=== PATIENT | male | born 1985 | race Caucasian/White ===

== ENCOUNTER 2021-06-06 09:00 | Emergency (ER) | payer OTHER, SELFPAY ==
[2021-06-06 09:17] VITALS: BP 144/92; PULSE 78; RESP 18; TEMP 36.8; O2SAT 99; BMI 36.9
--- NOTE | 2021-06-06 09:19 | HMH.EDUTC ---
[facility] [place] Clinical Impression: Bronchitis Sinusitis Qualifiers: Sinusitis location: unspecified location Chronicity: acute Recurrence: non-recurrent Qualified Code(s): J01.90 - Acute sinusitis, unspecified Disposition: Home, Self-Care Condition on Discharge: Good Instructions: Sinusitis, DI for Sinusitis Additional Instructions: Drink plenty of fluids. Take tylenol or ibuprofen for pain or fever. Take the medications as directed. Follow up with your regular doctor. GO TO THE ER FOR ANY WORSENING SYMPTOMS Quarantine until you know the results of your covid-19 test. If it is positive, the health department should call you and give you further instructions about your length of Quarantine and other things. Notify your school or workplace of your results and follow their instructions regarding return to work/school. Prescriptions: Brompheniramine/Pseudoephed/Dm [Bromfed Dm Cough Syrup] 5 ml PO Q6HP PRN #240 ml PRN Reason: Cough Transmission Status: Received by [facility] #[id number] Amoxicillin/Potassium Clav [Augmentin 875-125 Tablet] 1 tab PO Q12H 10 Days #20 tab Transmission Status: Received by [facility] #[id number] methylPREDNISolone [Medrol] 4 mg PO DIRECTED 6 Days #21 packet Transmission Status: Received by [facility] #[id number] guaiFENesin [Mucinex 600mg tablet] 1 - 2 tab PO BIDP PRN #30 tab PRN Reason: Congestion Transmission Status: Received by [facility] #[id number] Referrals: Jerardo Conrad [Primary Care Provider] - Time of Disposition: 09:34 Medical Decision Making - Medical Records Medical records reviewed: No: I reviewed the patient's medical records. - Karel Inquiry Pt receiving controlled substance: No Vital Signs: 06/06/21 09:17 06/06/21 09:41 Temperature 98.2 F 98.2 F Temperature Source Oral Pulse Rate 78 Pulse Rate [Brachial] 78 Respiratory Rate 18 16 Blood Pressure 144/92 H Blood Pressure [Right Arm] 144/92 H Blood Pressure Mean [Right Arm] 109 Blood Pressure Source [Right Arm] Automatic Cuff 02 Sat by Pulse Oximetry 99 Oxygen Delivery Method Room Air - Lab Data Lab results reviewed: Yes: I reviewed the patient's lab results. Lab Results 06/06/21 09:22: Strep Scn Rapid Clinic Negative Orders (Tests/Meds): ORDERS Category Date Time Status Strep Screen Confirmation Routine Micro 06/06/21 09:22 [place]ceived [facility] [place] - General Stated complaint: bilateral ear pain, sore throat, cough, congestion Time Seen by Provider: 06/06/21 09:19 - History of Present Illness Provider Complaint: He states that for the last 3 days he has had worsening sinus congestion and sore throat. He has had a dry cough and mild chest congestion too. He has been vaccinated against covid-19. - Related Data Previous Rx's Medication Instructions Recorded Amoxicillin/Potassium Clav 1 tab PO Q12H 10 Days #20 tab 06/06/21 [Augmentin 875-125 Tablet] Brompheniramine/Pseudoephed/Dm 5 ml PO Q6HP PRN #240 ml 06/06/21 [Bromfed Dm Cough Syrup] guaiFENesin [Mucinex 600mg tablet] 1 - 2 tab PO BIDP PRN #30 tab 06/06/21 methylPREDNISolone [Medrol] 4 mg PO DIRECTED 6 Days #21 06/06/21 packet Allergies Allergy/AdvReac Type Severity Reaction Status Date / Time No Known Allergies Allergy Verified 02/28/21 09:40 [facility] History - Hepatitis A Screen Attestation statement:: This patient has been screened for Hepatitis A risk factors. I have reviewed the patient's past medical history: Yes ROS Obtained: Yes All systems reviewed & no additional complaints - Constitutional Constitutional: Denies body ache, Denies chills, Denies fever(s), Reports poor appetite, Reports malaise - Eyes Eyes: Denies eye discharge - ENT Ears, Nose, Mouth, and Throat: Reports as per HPI - Cardiovascular Cardiovascular: Denies chest pain - Respiratory Respiratory: Reports chest congestion, Reports cough, Denies dyspnea
[2021-06-06 09:41] VITALS: BP 144/92; PULSE 78; RESP 16; TEMP 36.8
[2021-06-06 09:43] LABS: UTC Strep Screen (Rapid) Negative (Negative)
[2021-06-06 13:11] LABS: Adenovirus,PCR Not Detected (NotDetected); Bordetella Pertussis Not Detected (NotDetected); Chlamydophila Pneumoniae, PCR Not Detected (NotDetected); Coronavirus 19, PCR Not Detected (NotDetected); Coronavirus 229E Not Detected (NotDetected); Coronavirus NL63 Not Detected (NotDetected); Coronavirus OC43 Not Detected (NotDetected); Coronovirus HKU1,PCR Not Detected (NotDetected); Human Metapneumovirus Not Detected (NotDetected); Influenza A, PCR Not Detected (NotDetected); Influenza AH1, 2009 Not Detected (NotDetected); Influenza AH1, PCR Not Detected (NotDetected); Influenza AH3,PCR Not Detected (NotDetected); Influenza B, PCR Not Detected (NotDetected); Mycoplasma Pneumoniae, PCR Not Detected (NotDetected); Parainfluenza 1, PCR Not Detected (NotDetected); Parainfluenza 2, PCR Not Detected (NotDetected); Parainfluenza 3, PCR Not Detected (NotDetected); Parainfluenza 4, PCR Not Detected (NotDetected); Respiratory Syncytial Virus Not Detected (NotDetected); Rhinovirus/Enterovirus Not Detected (NotDetected)
== END 2021-06-06 09:41 | disposition home or self-care (01) ==
LOC: ER 09:04 → UTC 09:05
PROVIDERS: Emergency Provider Nurse Practitioner Family; PCP Internal Medicine
DX: J20.9 Acute bronchitis, unspecified (principal); J01.90 Acute sinusitis, unspecified; Z20.822 Contact with and (suspected) exposure to COVID-19
CPT/HCPCS: 87581; 87632; 87798; 87880; 99202; C9803; G0463; U0003; U0005

== ENCOUNTER → 2022-02-22 08:00 | Outpatient (CLI) | payer SELFPAY | PROVIDERS: Visit Provider Nurse Practitioner Family | DX: Z02.4 Encounter for examination for driving license (principal) ==

== ENCOUNTER → 2023-03-02 08:50 | Outpatient (CLI) | payer SELFPAY | PROVIDERS: PCP Internal Medicine; Visit Provider Nurse Practitioner Family | DX: Z02.4 Encounter for examination for driving license (principal) ==

== ENCOUNTER 2024-09-18 02:14 | Emergency (ER) | payer BC, SELFPAY ==
[2024-09-18 02:15] VITALS: BP 151/75; PULSE 84; RESP 18; TEMP 36.6; O2SAT 98; BMI 33.4
--- NOTE | 2024-09-18 02:20 | CT_ITS ---
PROCEDURE INFORMATION: Exam: CTA Abdomen and Pelvis With Contrast Exam date and time: 09/18/2024 2:44 AM Age: 38 years old Clinical indication: Abdominal pain; Acute; Additional info: Severe midline abd pain radiating to back TECHNIQUE: Imaging protocol: Computed tomographic angiography of the abdomen and pelvis with contrast. Exam focused on the arteries. 3D rendering (Not supervised by radiologist): MIP and/or 3D reconstructed images were created by the technologist. Radiation optimization: All CT scans at this facility use at least one of these dose optimization techniques: automated exposure control; mA and/or kV adjustment per patient size (includes targeted exams where dose is matched to clinical indication); or iterative reconstruction. Contrast material: ISOUVE; Contrast volume: 80 ml; Contrast route: INTRAVENOUS (IV); COMPARISON: No relevant prior studies available. FINDINGS: Diaphragm: Small hiatal hernia. Aorta: The aorta is unremarkable. Celiac trunk and mesenteric arteries: No occlusion or significant stenosis. Renal arteries: No occlusion or significant stenosis. Right iliac arteries: No occlusion or significant stenosis. Left iliac arteries: No occlusion or significant stenosis. Liver: No mass. Gallbladder and biliary ducts: Unremarkable. No calcified stones. No ductal dilation. Pancreas: Unremarkable. No mass. No ductal dilation. Spleen: Unremarkable. No splenomegaly. Adrenal glands: Unremarkable. No mass. Kidneys and ureters: Unremarkable. No solid mass. No hydronephrosis. Stomach and bowel: Prior gastric bypass surgery. Appendix: No evidence of appendicitis. Intraperitoneal space: Unremarkable. No free air. No significant fluid collection. Lymph nodes: Unremarkable. No enlarged lymph nodes. Urinary bladder: Unremarkable. No mass. Reproductive: Unremarkable as visualized. Bones/joints: No acute fracture. Soft tissues: Unremarkable. IMPRESSION: 1. Normal aorta and branches. 2. Gastric bypass surgery with small hiatal hernia, no ileus or obstruction.
--- NOTE | 2024-09-18 02:22 | ECG_ITS ---
APPROVED REPORT Exam: Resting ECG HR:78 bpm ECG Measurements Heart Rate 78 AXES IL 148 P 26 QRSd 101 QRS 40 QT 376 T 15 QTc 409 Conclusion SINUS RHYTHM NONSPECIFIC T-WAVE ABNORMALITY BORDERLINE ECG UNCONFIRMED REPORT Electronically signed by : RYAN SMITH, 09/18/2024 06:53:47
[2024-09-18 02:27] LABS: Microscopic, Urine URINE MICROSCOPIC (MICROSCOPIC)
[2024-09-18] MEDS: ONDANSETRON 4MG/2ML VIAL 4 MG IV (02:28)
[2024-09-18] MEDS: KETOROLAC 30MG/ML VIAL 30 MG IV (02:28)
[2024-09-18] MEDS: MORPHINE 4MG/ML SYRINGE 4 MG IV (02:29)
[2024-09-18] MEDS: ACETAMINOPHEN 500MG TAB 1000 MG PO (02:29)
[2024-09-18 02:30] LABS: Appearance,Urine CLEAR (Clear); Bilirubin,Urine Negative (Negative); Blood, Urine TRACE-I (Negative); Color,Urine YELLOW (Yellow); Glucose,Urine (UA) Negative (Negative); Ketones,Urine Negative (Negative); Leukocyte Esterase,Urine Negative (Negative); Nitrate,Urine Negative (Negative); Protein,Urine Negative (Negative); Specific Gravity, Urine 1.025 (1.005-1.030); Urobilinogen,Urine 0.2 EU/dl (0.2)
[2024-09-18 02:33] LABS: Coronavirus 19, PCR Not Detected (NotDetected); Influenza A, PCR Not Detected (NotDetected); Influenza B, PCR Not Detected (NotDetected)
--- NOTE | 2024-09-18 02:35 | ED_ITS ---
Discharge Plan Disposition Patient Disposition: Home, Self-Care Prescriptions Prescriptions: No Action amlodipine 10 mg tablet 10 mg PO DAILY valsartan 320 mg tablet 320 mg PO DAILY Referrals Follow up/Referrals: Provider,Referral, MD [Primary Care Provider] - See instructions Activity Restrictions/Add. Instructions Additional Instructions/Restrictions: Recommend following up with your PCP for further assessment and consideration of scope. Recommend starting antacid medication. If your symptoms worsen or do not significantly improve, recommend reevaluation. Clinical Impressions Clinical Impression: Acute epigastric pain Stand Alone Forms Stand Alone Forms: Work/School Release Print Language Print Language: Urdu Discharge ED Provider: Caleb Fitzpatrick General Adult HPI General Chief complaint: PAIN Stated complaint: Abdominal Pain Time Seen by Provider: 09/18/24 02:15 History of Present Illness HPI narrative: 38-year-old male with history of gastric bypass presents for severe acute onset epigastric abdominal pain radiating to the back. He reports it was 10 or 10 and woke him from sleep. He tried to take a shower and relax at home but it did not improve. Reports he been having some diarrhea for the last few days. He denies any fever at home. Reports some alcohol use and vaping, denies drug use. Related Data Home Medications ?Medication ?Instructions ?Recorded ?Confirmed amlodipine 10 mg tablet 10 mg PO DAILY 09/18/24 09/18/24 valsartan 320 mg tablet 320 mg PO DAILY 09/18/24 09/18/24 Allergies Allergy/AdvReac Type Severity Reaction Status Date / Time No Known Allergies Allergy Verified 02/28/21 09:40 [facility] Disclaimer: The information contained in this section may have been updated after the patient was seen, as this information can be updated by other users. Social History Smoking Status: Current every day smoker alcohol intake: never current occupational status: employed Travel in the last 8 weeks: None ROS Obtained: Yes All systems reviewed & no additional complaints except as documented Physical Exam General General appearance: alert Comment: Uncomfortable appearing Head Head exam: atraumatic and normocephalic Eye Eye exam: Present normal appearance, PERRL and EOMI ENT ENT exam: Present normal oropharynx and normal external ear exam Neck Neck exam: Present normal inspection and full ROM Chest Chest inspection: Present normal inspection and symmetric chest wall rise; Absent tenderness Respiratory Respiratory exam: Present normal lung sounds bilaterally; Absent respiratory distress Cardiovascular Cardiovascular exam: Present regular rate and normal rhythm Abdominal Exam Abdominal exam: Present soft and tenderness (Epigastric); Absent distention or guarding Extremities Exam Extremities exam: Present normal inspection; Absent edema or joint swelling Back Exam Back exam: Present normal inspection; Absent tenderness Neurological Exam Neurological exam: Present alert and oriented X3; Absent motor sensory deficit Psychiatric Psychiatric exam: Present normal affect and normal mood Skin Skin exam: Present warm, dry and normal color Lymphatic Lymphatic Findings: no adenopathy Medical Decision Making Medical Records Medical records reviewed: Yes I reviewed the patient's medical records. Screening: Per USPSTF and CDC recommendations, given the prevalence of disease in our region, it is our hospital?s policy to screen for HIV and viral Hepatitis for all patients aged 18 and over and those with ongoing risk factors. Karel Inquiry Pt receiving controlled substance: No Karel was queried for this patient: No Vital Signs: 09/18/24 02:15 09/18/24 02:51 09/18/24 03:24 Temperature 97.9 F Temperature Source Oral Pulse Rate 76 70 Pulse Rate [Right Brachial] 84 Respiratory Rate 18 18 16 Blood Pressure 151/89 H 152/92 H Blood Pressure [Right Arm] 151/75 H Blood Pressure Mean [Right Arm] 100 Blood Pressure Source Automatic Cuff Automatic Cuff Blood Pressure Source [Right Arm] Automatic Cuff Blood Pressure Position Sitting Sitting 02 Sat by Pulse Oximetry 98 98 96 Oxygen Delivery Method Room Air Room Air Room Air 09/18/24 04:00 Temperature 97.9 F Temperature Source Oral Pulse Rate 67 Pulse Rate [Right Brachial] Respiratory Rate 15 Blood Pressure 136/83 Blood Pressure [Right Arm] Blood Pressure Mean [Right Arm] Blood Pressure Source Blood Pressure Source [Right Arm] Blood Pressure Position 02 Sat by Pulse Oximetry Oxygen Delivery Method Room Air Lab Data Lab results reviewed: Yes I reviewed the patient's lab results. Lab Results 09/18/24 02:17: Urine Color Yellow, Urine Appearance Clear, Urine pH 6.0, Ur Specific [place] 1.025, Urine Protein Negative, Urine Glucose (UA) Negative, Urine Ketones Negative, Urine Blood Trace-i, Urine Nitrate Negative, Urine Bilirubin Negative, Urine Urobilinogen 0.2, Ur Leukocyte Esterase Negative, Urine RBC Occasional, Urine WBC Occasional, Ur Squamous Epith Cells 3-5, Urine Bacteria Trace, Urine Mucus Trace 09/18/24 02:27: WBC 9.2, RBC 5.31, Hgb 16.4, Hct 47.0, MCV 88.5, MCH 30.9, MCHC 34.9, RDW 12.4, Plt Count 194, MPV 10.3, Neut % (Auto) 75.6, Lymph % (Auto) 15.2, [place] % (Auto) 6.8, Eos % (Auto) 1.6, Baso % (Auto) 0.5, Neut # (Auto) 7.0, Lymph # (Auto) 1.4, [facility] # (Auto) 0.6, Eos # (Auto) 0.2, Baso # (Auto) 0.1, Sodium 141, Potassium 3.8, Chloride 104, Carbon Dioxide 29, Anion Gap 11.8, BUN 13, Creatinine 0.80, Estimated Creat Clear 187, Estimated GFR 108, Est GFR ( Amer) 131, Glucose 87, Calcium 9.2, Magnesium 2.1, Total Bilirubin 1.5 H, AST 98 H, ALT 42, Alkaline Phosphatase 80, Troponin I < 0.01, Total Protein 7.7, Albumin 4.9, Globulin 2.8, Albumin/Globulin Ratio 1.8, Lipase 164 09/18/24 02:30: SARS-CoV-2 (PCR) Not detected, Influenza A Untype (PCR) Not detected, Influenza Type B (PCR) Not detected 09/18/24 02:27 09/18/24 02:27 Orders (Tests/Meds): ED MEDICATIONS Discontinued Medications Generic Name Dose Route Start Last Admin Trade Name Freq PRN Reason Stop Dose Admin Acetaminophen 1,000 mg 09/18/24 02:20 09/18/24 02:29 Acetaminophen 500mg Tab PO 09/18/24 02:21 1,000 mg ONCE ONE Administration Belladonna Alkaloids 60 ml 09/18/24 03:21 09/18/24 03:24 Belladonna Alkaloids 60 Ml Ml PO 09/18/24 03:22 60 ml ONCE ONE Administration Iopamidol 80 ml 09/18/24 02:52 09/18/24 02:53 Iopamidol-370 (76%);100ml Bottle IV 09/18/24 02:53 80 ml ONCE ONE Administration Ketorolac Tromethamine 30 mg 09/18/24 02:20 09/18/24 02:28 Ketorolac 30mg/Ml Vial IV 09/18/24 02:21 30 mg ONCE ONE Administration Morphine Sulfate 4 mg 09/18/24 02:20 09/18/24 02:29 Morphine 4mg/Ml Syringe IV 09/18/24 02:21 4 mg ONCE ONE Administration Ondansetron HCl 4 mg 09/18/24 02:20 09/18/24 02:28 Ondansetron 4mg/2ml Vial IV 09/18/24 02:21 4 mg ONCE ONE Administration Sodium Chloride 50 ml 09/18/24 02:52 09/18/24 02:53 0.9 % Sodium Chloride 50 Ml Vial IV 09/18/24 02:53 50 ml ONCE ONE Administration Sodium Chloride 10 ml 09/18/24 02:52 09/18/24 02:53 Sodium Chloride 0.9% 10ml Syr (Rad Only) IV 09/18/24 02:53 10 ml ONCE ONE Administration ORDERS Category Date Time Status CT angio abdomen pelvis Stat Cat Scan 09/18/24 02:20 Completed POCUS Point of Care (ER Only) Stat Exams 09/18/24 03:04 Ordered CBC w/Auto Diff [Complete Blood Count Auto Diff] Stat Lab 09/18/24 02:27 Completed CMP [Comprehensive Metabolic Panel] Stat Lab 09/18/24 02:27 Completed HIV Combo Routine Lab 09/18/24 02:27 Received Hepatitis C Ab Qual. W/ RFX Routine Lab 09/18/24 02:27 Received Lipase Stat Lab 09/18/24 02:27 Completed Magnesium Stat Lab 09/18/24 02:27 Completed Rapid PCR Covid and Flu A/B Stat Lab 09/18/24 02:30 Completed Troponin I Q3H Lab 09/18/24 02:27 Completed UA [Urinalysis and Microscopic] Stat Lab 09/18/24 02:17 Completed ECG Data Tracing #1: I reviewed this ECG and interpreted as documented below: ECG initial impression date: 09/18/24 ECG initial impression time: 02:23 ECG normal with no acute: arrhythmias, ischemia, conduction abnormalities, chamber hypertrophy HEART Score History (anamnesis): Slightly suspicious ECG: Normal Age: <45 years Risk factors: 1-2 risk factors Troponin: </= normal limit HEART Score: 1 Medical Decision Narrative: 38-year-old male with history of hypertension and gastric bypass presents with acute epigastric abdominal pain radiating to the back. History was obtained via interactive discussion with patient, chart review. On arrival, patient is [afebrile, hemodynamically stable, satting appropriately, alert, oriented x4, GCS 15], moving all extremities spontaneously. Full physical exam performed and significant for epigastric abdominal tenderness, no tenderness to the right upper quadrant Differential includes but is not limited to pancreatitis, acute aortic pathology, cholecystitis, gastritis, gastroenteritis, bowel obstruction. Patient was given Tylenol Toradol morphine Zofran for symptomatic management and correction of underlying abnormalities. Workup initiated including emergent CTA of the abdomen and pelvis, CBC CMP lipase troponin EKG UA. I attempted bedside ultrasound of the right upper quadrant but it was not of sufficient image quality to be diagnostic. On re-evaluation, patient reports some improvement in pain but it is still there. Significantly improved/resolved after administration of GI cocktail. Laboratory workup independently interpreted by me and significant for no significant leukocytosis, no significant electrolyte derangement, minimally elevated bili at 1.5, millimeter elevated AST at 98, negative initial troponin, negative lipase, negative urine.. Imaging independently interpreted by me and significant for no evidence of acute aortic pathology, bowel obstruction, gallstones or pericholecystic fluid, pancreatitis etc. Patient does have a small hiatal hernia. See radiology read for full review of final results. Waiting for formal right upper quadrant ultrasound in the morning was considered, but deemed unnecessary due to patient has no right upper quadrant tenderness and had significant proved after GI cocktail. Given patient history, exam and workup, patient's presentation most likely represents gastritis/GERD. Interact discussion was had with patient regarding his presentation. He was discharged in stable condition with instructions to begin/expand his antacid medications and follow-up with his PCP/GI for consideration of scope. Return precautions given. Procedures Risk/Benefits of Procedure(s) Were Explained: Yes Critical Care Critical Care Time Critical Care Time: No
[2024-09-18 02:37] LABS: Basophils # 0.1 K/mm3 (0-0.2); Basophils % 0.5 % (0.1-2.0); Eosinophils # 0.2 K/mm3 (0.0-0.4); Eosinophils % 1.6 % (0.1-12.0); Hemoglobin 16.4 g/dL (14.1-18.0); Lymphocytes # 1.4 K/mm3 (0.7-4.5); Lymphocytes % 15.2 % (10-50); Mean Corpuscular HGB Conc 34.9 g/dL (31.8-35.4); Mean Corpuscular Hemoglobin 30.9 pg (27.0-31.2); Mean Corpuscular Volume 88.5 fl (80-94); Mean Platelet Volume 10.3 fl (7.4-10.4); Monocytes # 0.6 K/mm3 (0.1-1.0); Monocytes % 6.8 % (1.7-9.3); Neutrophils % 75.6 % (37.0-80.0); Platelet Count 194 K/mm3 (142-424); Red Blood Count 5.31 M/mm3 (4.60-6.20); Red Cell Distribution Width 12.4 % (11.5-17.5); White Blood Count 9.2 K/mm3 (4.8-10.8)
--- NOTE | 2024-09-18 02:39 | PC.NURSE ---
PATIENT TO CT
[2024-09-18 02:41] LABS: Bacteria,Urine Trace /lpf; Mucus,Urine Trace /lpf; RBC,Urine Occasional #/hpf (0-3); WBC,Urine Occasional #/hpf (0-3)
[2024-09-18 02:47] LABS: Alanine Aminotransferase 42 U/L (12-78); Albumin Level 4.9 g/dl (3.5-5.0); Albumin/Globulin Ratio 1.8 (1.1-1.8); Alkaline Phosphatase 80 U/L (38-126); Anion Gap 11.8 mEq/L (5-15); Aspartate Amino Transferase 98 U/L (17-59); Bilirubin,Total 1.5 mg/dl (0.2-1.3); Blood Urea Nitrogen 13 mg/dl (9-20); Calcium 9.2 mg/dl (8.4-10.2); Carbon Dioxide 29 mmol/L (22.0-30.0); Chloride 104 mmol/L (98-107); Creatinine Clearance Estimated 187 mL/min (50-200); Estimated Glomerular Filt Rate 108 ml/min (>60); GFR (African American) 131 ML/MIN (>60); Globulin 2.8 g/dL (1.3-3.2); Glucose 87 mg/dl (74-100); Lipase 164 U/L (23-300); Magnesium 2.1 mg/dl (1.6-2.3); Potassium 3.8 mmoL/L (3.5-5.1); Sodium 141 mmol/L (136-145); Total Protein,Serum 7.7 g/dl (6.3-8.2)
[2024-09-18 02:51] VITALS: BP 151/89; PULSE 76; RESP 18; O2SAT 98
--- NOTE | 2024-09-18 02:51 | PC.NURSE ---
RETURN FROM CT. STATES FEELING MUCH
[2024-09-18] MEDS: 0.9 % SODIUM CHLORIDE 50 ML VIAL IV (02:53)
[2024-09-18] MEDS: IOPAMIDOL-370 (76%);100ML BOTTLE 80 ML IV (02:53)
[2024-09-18] MEDS: SODIUM CHLORIDE 0.9% 10ML SYR (RAD ONLY) 10 ML IV (02:53)
[2024-09-18 03:01] LABS: Troponin I < 0.01 ng/ml (0.00-0.034)
[2024-09-18 03:24] VITALS: BP 152/92; PULSE 70; RESP 16; O2SAT 96
[2024-09-18] MEDS: BELLADONNA ALKALOIDS 60 ML ML PO (03:24)
[2024-09-18 04:00] VITALS: BP 136/83; PULSE 67; RESP 15; TEMP 36.6; O2SAT 98
[2024-09-18 09:03] LABS: HIV Combo NEGATIVE (Negative)
[2024-09-18 09:12] LABS: Hepatitis C Ab Qual. W/ RFX NEGATIVE (Negative)
== END 2024-09-18 04:00 | disposition home or self-care (01) ==
PROVIDERS: Emergency Provider Emergency Medicine
DX: R10.13 Epigastric pain (principal); R10.9 Unspecified abdominal pain; R19.7 Diarrhea, unspecified
CPT/HCPCS: 74174; 80053; 81001; 83690; 83735; 84484; 85025; 86803; 87389; 87636; 93005; 96374; 96375; 99285; J1885; J2270; J2405; Q9967

== ENCOUNTER 2024-10-02 19:48 | Inpatient (IN) | payer BC, SELFPAY ==
[2024-10-02] VITALS (10 sets, daily range): BP systolic 125–175; BP diastolic 74–110; PULSE 57–97; RESP 17–22; TEMP 36.4–36.9; O2SAT 94–100; BMI 34.2; BMI 33.3
[2024-10-02] MEDS: HYDROMORPHONE 2MG/ML SYRINGE 1 MG IV ×3 (19:54→21:42)
[2024-10-02] MEDS: ONDANSETRON 4MG/2ML VIAL 4 MG IV (19:55)
--- NOTE | 2024-10-02 20:01 | ECG_ITS ---
APPROVED REPORT Exam: Resting ECG HR:95 bpm ECG Measurements Heart Rate 95 AXES SD 160 P 42 QRSd 101 QRS 45 QT 370 T 28 QTc 423 Conclusion SINUS RHYTHM NONSPECIFIC T-WAVE ABNORMALITY BORDERLINE ECG UNCONFIRMED REPORT Electronically signed by : RYAN SMITH, 10/03/2024 23:56:27
[2024-10-02] MEDS: PROMETHAZINE HCL 25MG/ML 1ML VIAL 25 MG IV (20:07)
[2024-10-02] MEDS: SODIUM CHLORIDE 0.9% 25ML BAG 25 ML IV (20:08)
[2024-10-02 20:19] LABS: Albumin Level 4.9 g/dl (3.5-5.0); Chloride 100 mmol/L (98-107)
[2024-10-02 20:20] LABS: Potassium 3.3 mmoL/L (3.5-5.1); Sodium 139 mmol/L (136-145)
[2024-10-02 20:22] LABS: Blood Urea Nitrogen 6 mg/dl (9-20); Creatinine Clearance Estimated 173 mL/min (50-200); Estimated Glomerular Filt Rate 94 ml/min (>60); GFR (African American) 114 ML/MIN (>60)
[2024-10-02 20:23] LABS: Alanine Aminotransferase 220 U/L (12-78); Albumin/Globulin Ratio 1.5 (1.1-1.8); Alkaline Phosphatase 95 U/L (38-126); Anion Gap 13.3 mEq/L (5-15); Aspartate Amino Transferase 255 U/L (17-59); Calcium 9.2 mg/dl (8.4-10.2); Carbon Dioxide 29 mmol/L (22.0-30.0); Globulin 3.3 g/dL (1.3-3.2); Glucose 109 mg/dl (74-100); Total Protein,Serum 8.2 g/dl (6.3-8.2)
[2024-10-02 20:24] LABS: Basophils # 0.1 K/mm3 (0-0.2); Basophils % 0.8 % (0.1-2.0); Eosinophils # 0.1 K/mm3 (0.0-0.4); Eosinophils % 1.7 % (0.1-12.0); Hemoglobin 16.4 g/dL (14.1-18.0); Lymphocytes # 1.1 K/mm3 (0.7-4.5); Lymphocytes % 15.3 % (10-50); Mean Corpuscular HGB Conc 34.9 g/dL (31.8-35.4); Mean Corpuscular Hemoglobin 30.5 pg (27.0-31.2); Mean Corpuscular Volume 87.5 fl (80-94); Mean Platelet Volume 10.2 fl (7.4-10.4); Monocytes # 0.6 K/mm3 (0.1-1.0); Monocytes % 8.1 % (1.7-9.3); Neutrophils # 5.3 K/mm3 (1.8-7.8); Neutrophils % 73.7 % (37.0-80.0); Platelet Count 216 K/mm3 (142-424); Red Blood Count 5.37 M/mm3 (4.60-6.20); Red Cell Distribution Width 12.4 % (11.5-17.5); White Blood Count 7.1 K/mm3 (4.8-10.8)
--- NOTE | 2024-10-02 20:25 | ED_ITS ---
Discharge Plan Disposition Patient Disposition: Admitted Chief Complaint: Abdominal Pain Clinical Impressions Clinical Impression: Choledocholithiasis, Acute cholecystitis Discharge ED Provider: Miguel Harris General Adult HPI General Chief complaint: Abdominal Pain Stated complaint: Chest pain Time Seen by Provider: 10/02/24 19:49 Mode of Arrival: Ambulatory Source of Information: Patient Limitations: No Limitations Description of Symptoms (Recalled from ER Triage Doc. by RN): pt reports severe right sided abdominal pain that radiates to his back and between his shoulder blades History of Present Illness HPI narrative: Please note that above description of symptoms, in this electronic medical record under categorization of recalled from ER triage doctor by RN are reflective of an initial nursing assessment, however, is not reflective of my full history and physical exam that was personally taken and clarified. Consequentially, this preceding description of symptoms, which may include the patient's categorized chief complaint in the EMR, do not reflect my personal clinical impression, and the ultimate description of history of present illness and patient stated complaints should be deferred to this section of the note. Unless stated otherwise or congruent with this section of the note, additional signs, symptoms, or incongruence should be interpreted as inaccurate with my clinical impression. Related Data Home Medications ?Medication ?Instructions ?Recorded ?Confirmed amlodipine 10 mg tablet 10 mg PO DAILY 09/18/24 09/18/24 valsartan 320 mg tablet 320 mg PO DAILY 09/18/24 09/18/24 Allergies Allergy/AdvReac Type Severity Reaction Status Date / Time No Known Allergies Allergy Verified 02/28/21 09:40 [facility] Disclaimer: The information contained in this section may have been updated after the patient was seen, as this information can be updated by other users. Social History Smoking Status: Never smoker alcohol intake: never current occupational status: employed Travel in the last 8 weeks: None Have you lived/traveled outside US in past 30 days?: No Contact w/someone who lives/traveled outside US past 30 days?: No Exposure to someone with infectious disease in past 14 days?: No Do you have a fever (greater than 100.4 F or 38 C)?: No Have you tested positive for COVID-19: No Exposed to someone with COVID-19 in past 14 days?: No Do you have a sore throat?: No Do you have a cough?: No Do you have any weakness?: No Do you have any diarrhea?: No Are you experiencing any unusual bleeding?: No Do you have any muscle aches/pain?: No Do you have any abdominal pain?: No Are you experiencing loss of taste or smell?: No ROS Obtained: Yes All systems reviewed & no additional complaints except as documented Physical Exam General General appearance: alert and in distress (Actively retching, abdominal pain) Head Head exam: atraumatic and normocephalic Eye Eye exam: Present normal appearance, PERRL and EOMI Neck Neck exam: Present normal inspection, full ROM and trachea midline Respiratory Respiratory exam: Absent respiratory distress, wheezes, stridor, accessory muscle use or prolonged expiratory phase Cardiovascular Cardiovascular exam: Present other (Pulses equal symmetric in upper and lower extremities) Abdominal Exam Abdominal exam: Present soft, guarding and Reed's sign; Absent distention, tenderness, rebound, rigidity or pulsatile mass Abdominal tenderness: Present RUQ and severe Extremities Exam Extremities exam: Absent edema Neurological Exam Neurological exam: Present alert, oriented X3 and CN II-XII intact; Absent motor sensory deficit Skin Skin exam: Present warm, dry and diaphoresis; Absent erythema Medical Decision Making Medical Records Medical records reviewed: Yes I reviewed the patient's medical records. Screening: Per USPSTF and CDC recommendations, given the prevalence of disease in our region, it is our hospital?s policy to screen for HIV and viral Hepatitis for all patients aged 18 and over and those with ongoing risk factors. Karel Inquiry Pt receiving controlled substance: No Karel was queried for this patient: No Vital Signs: 10/02/24 19:48 10/02/24 19:50 10/02/24 20:00 Temperature 98.5 F Temperature Source Oral Pulse Rate 77 97 H Pulse Rate [Right] 76 Respiratory Rate 22 Blood Pressure 175/91 H 157/110 H Blood Pressure [Right Arm] 175/91 H Blood Pressure Mean Blood Pressure Mean [Right Arm] 119 02 Sat by Pulse Oximetry 100 100 100 Oxygen Delivery Method Room Air Room Air Room Air 10/02/24 20:14 10/02/24 20:30 10/02/24 21:32 Temperature Temperature Source Pulse Rate 77 70 Pulse Rate [Right] Respiratory Rate Blood Pressure 158/96 H 159/79 H 136/88 Blood Pressure [Right Arm] Blood Pressure Mean 105 Blood Pressure Mean [Right Arm] 02 Sat by Pulse Oximetry 99 97 Oxygen Delivery Method Room Air Room Air Room Air 10/02/24 22:00 Temperature Temperature Source Pulse Rate 57 L Pulse Rate [Right] Respiratory Rate Blood Pressure 125/74 Blood Pressure [Right Arm] Blood Pressure Mean Blood Pressure Mean [Right Arm] 02 Sat by Pulse Oximetry 96 Oxygen Delivery Method Room Air Lab Data Lab Results 10/02/24 19:50: WBC 7.1, RBC 5.37, Hgb 16.4, Hct 47.0, MCV 87.5, MCH 30.5, MCHC 34.9, RDW 12.4, Plt Count 216, MPV 10.2, Neut % (Auto) 73.7, Lymph % (Auto) 15.3, [place] % (Auto) 8.1, Eos % (Auto) 1.7, Baso % (Auto) 0.8, Neut # (Auto) 5.3, Lymph # (Auto) 1.1, [place] # (Auto) 0.6, Eos # (Auto) 0.1, Baso # (Auto) 0.1, PT 10.6, INR 0.94, APTT 25.7, Sodium 139, Potassium 3.3 L, Chloride 100, Carbon Dioxide 29, Anion Gap 13.3, BUN 6 L, Creatinine 0.90, Estimated Creat Clear 173, Estimated GFR 94, Est GFR ( Amer) 114, Glucose 109 H, Lactate 1.0, Calcium 9.2, Magnesium 2.1, Total Bilirubin 6.0 H, AST 255 H, ALT 220 H, Alkaline Phosphatase 95, Troponin I < 0.01, C-Reactive Protein 1.5, Total Protein 8.2, Albumin 4.9, Globulin 3.3 H, Albumin/Globulin Ratio 1.5, Lipase 207 10/02/24 20:26: Urine Color Dark yellow, Urine Appearance Slightly cloudy, Urine pH 6.5, Ur Specific [place] 1.025, Urine Protein Negative, Urine Glucose (UA) Negative, Urine Ketones 1+, Urine Blood 1+ A, Urine Nitrate Negative, Urine Bilirubin 1+ A, Urine Urobilinogen 1.0, Ur Leukocyte Esterase Negative, Urine RBC Occasional, Urine WBC None, Ur Squamous Epith Cells None, Urine Bacteria Trace 10/02/24 19:50 10/02/24 19:50 Orders (Tests/Meds): ED MEDICATIONS Generic Name Dose Route Start Last Admin Trade Name Freq PRN Reason Stop Dose Admin Polyethylene Glycol 17 gm 10/02/24 21:43 10/02/24 21:44 Polyethylene Glycol 3350 17 Gm Packet PO 11/01/24 21:42 17 gm DAILYP PRN Administration Constipation Discontinued Medications Generic Name Dose Route Start Last Admin Trade Name Freq PRN Reason Stop Dose Admin Hydromorphone HCl 1 mg 10/02/24 19:49 10/02/24 19:54 Hydromorphone 2mg/Ml Syringe IV 10/02/24 19:50 1 mg ONCE ONE Administration Hydromorphone HCl 1 mg 10/02/24 20:28 10/02/24 20:31 Hydromorphone 2mg/Ml Syringe IV 10/02/24 20:29 1 mg ONCE ONE Administration Hydromorphone HCl 1 mg 10/02/24 21:40 10/02/24 21:42 Hydromorphone 2mg/Ml Syringe IV 10/02/24 21:41 1 mg ONCE ONE Administration Lactated Ringer's 1,000 mls @ 999 mls/hr 10/02/24 20:29 10/02/24 20:31 Lactated Ringer's 1000 Ml Bag IV 10/02/24 21:29 999 mls/hr .Q1H1M ONE Administration Piperacillin Sod/Tazobactam 100 mls @ 200 mls/hr 10/02/24 21:11 10/02/24 21:31 Sod 4.5 gm/ Sodium Chloride IV 10/02/24 21:40 200 mls/hr ONCE ONE Administration Ketorolac Tromethamine 15 mg 10/02/24 20:29 10/02/24 20:31 Ketorolac 30mg/Ml Vial IV 10/02/24 20:30 15 mg ONCE ONE Administration Ondansetron HCl 4 mg 10/02/24 19:49 10/02/24 19:55 Ondansetron 4mg/2ml Vial IV 10/02/24 19:50 4 mg ONCE ONE Administration Promethazine HCl 25 mg 10/02/24 20:01 10/02/24 20:07 Promethazine Hcl 25mg/Ml 1ml Vial IV 10/02/24 20:02 25 mg ONCE ONE Administration Sodium Chloride 25 ml 10/02/24 20:01 10/02/24 20:08 Sodium Chloride 0.9% 25ml Bag IV 10/02/24 20:02 25 ml ONCE ONE Administration ORDERS Category Date Time Status GI consult [Consult to Gastroenterology] [CONS] Routine Cons 10/02/24 21:12 Active General Surgery Consult [Consult to General Surgery] [ Cons 10/02/24 21:11 Ordered CONS] Stat POCUS Point of Care (ER Only) Stat Exams 10/02/24 19:49 Completed CRP [C-Reactive Protein] Stat Lab 10/02/24 19:50 Completed Complete Blood Count Auto Diff Stat Lab 10/02/24 19:50 Completed Comprehensive Metabolic Panel Stat Lab 10/02/24 19:50 Completed Lactic Acid Stat Lab 10/02/24 19:50 Completed Lipase Stat Lab 10/02/24 19:50 Completed Magnesium Stat Lab 10/02/24 19:50 Completed PT INR [Prothrombin Time INR] Stat Lab 10/02/24 19:50 Completed PTT [Activated Partial Thrombo Time] Stat Lab 10/02/24 19:50 Completed Troponin I Q3H Lab 10/02/24 23:00 Ordered Troponin I Q3H Lab 10/03/24 02:00 Ordered Troponin I Stat Lab 10/02/24 19:50 Completed Urinalysis and Microscopic Stat Lab 10/02/24 20:26 Completed Blood Culture Stat Micro 10/02/24 21:25 Received Medical Decision Narrative: 39-year-old male history of hypertension presenting with epigastric pain. Patient states that pain has been going on for a little while, came to the emergency department recently about 2 weeks prior to this and workup not immediate actionable, sent home with outpatient follow-up. Saw family doctor today, started having pain again and was scheduled for outpatient ultrasound and CT. Pain got unbearable. Patient states that pain is now right upper quadrant, radiates through to his right shoulder blade, between his shoulders associated with vomiting and made worse with p.o. intake. No fevers or chills, yellowing of the skin or eyes, itching, dark urine or any other concerns. Vomiting is nonbloody, nonbilious. History was obtained via conversation with patient. On arrival, patient hemodynamically stable, alert, oriented x4, appropriate, GCS 15, moving all extremities spontaneously, pupils equal and reactive to light. Full physical exam performed and significant for uncomfortable appearing male in mild to moderate distress secondary to pain and nausea. Actively retching. Nonbloody emesis as well as nonbilious emesis. Abdomen is significantly tender in right upper quadrant with guarding. Differential includes PUD, gastritis, enteritis, gastroenteritis, pancreatitis, SBO, colitis, diverticulitis, nephrolithiasis, UTI, cholecystitis, choledocholithiasis, appendicitis, torsion, hepatitis, aortic pathology, mesenteric ischemia among others Patient placed on continuous cardiac monitoring and continuous pulse ox with initial blood pressure 175/91, heart rate 76, saturation 100% on room air. Independent interpretation of EKG shows sinus rhythm 95 bpm with AR 160, QRS 101, QTc 423 with normal axis and no acute ischemic change.. Patient was given Zofran and Dilaudid for symptomatic management and correction of underlying abnormalities. Continued retching, given 25 of Phenergan. Bedside [id number] ultrasound was performed, patient has thickened gallbladder wall about 3.6 mm, upper limit of normal gallbladder width and length. workup independently interpreted and significant for nonactionable CBC, but LFTs consistent with choledocholithiasis with elevated bilirubin, AST and ALT. Lipase negative. Urinalysis unconcerning. I spoke to gastroenterology, okay to accept patient for ERCP given elevated LFTs, stones on ultrasound. I also spoke to the surgeon on-call and had interactive discussion, agreeable to admission and cholecystectomy after ERCP. Reevaluation, patient still having significant pain, requiring multiple doses of pain medications. Also given MiraLAX to prevent constipation as well as empiric Zosyn. Because patient high risk for clinical decompensation, deemed appropriate for inpatient admission. Results were relayed to patient who voiced understanding and patient was agreeable to inpatient admission and management. Patient was admitted to the hospital for further definitive management. [employer] disclaimer Much of this encounter note is an electronic vice president business & corporate development spoken language to printed text. Electronic vice president business & corporate development of the spoken language may permit errors. Although I have reviewed the note, some errors may still exist. Procedures Limited Ultrasound Indication:: Limited RUQ ultrasound Indication: Vomiting, abdominal pain, positive Reed sign Identified structures: -Gallbladder -Gallbladder wall -Common bile duct -Liver Findings: Sonographic Reed sign: Present Gallstones: Present Sludge: Absent Pericholecystic fluid: Absent Maximal GB wall thickness (mm) (normal is </= 3mm): Abnormal, nearly 4 mm Common bile duct width (mm) (normal is </= 6mm): Unable to be visualized Gallbladder width (cm) (normal is < 4cm): Normal Gallbladder length (cm) (normal is < 10cm): Normal Impression: Sonographic Reed sign, thickened wall consistent with cholecystitis. Unable to visualize common bile duct. Images were saved to permanent archive The study was technically adequate CPT 93755-51 This study was performed by me, and I personally interpreted all images/videos. Based on my clinical judgement, these images were adequate and did not necessitate further imaging. Critical Care Critical Care Time Critical Care Time: No (gi)
[2024-10-02 20:31] LABS: Microscopic, Urine URINE MICROSCOPIC (MICROSCOPIC)
[2024-10-02] MEDS: LACTATED RINGERS 1000ML 1,000 ML 999 ML IV (20:31)
[2024-10-02] MEDS: KETOROLAC 30MG/ML VIAL 15 MG IV ×2 (20:31→23:35)
[2024-10-02 20:32] LABS: Activated Partial Thrombo Time 25.7 seconds (22.8-30.6)
[2024-10-02 20:33] LABS: INR 0.94 (0.9-1.1); Prothrombin Time 10.6 seconds (10.1-12.5)
[2024-10-02 20:38] LABS: Blood, Urine 1+ (Negative); Glucose,Urine (UA) Negative (Negative); Ketones,Urine 1+ (Negative); Leukocyte Esterase,Urine Negative (Negative); Nitrate,Urine Negative (Negative); PH,Urine 6.5 (5.0-8.5); Protein,Urine Negative (Negative); Specific Gravity, Urine 1.025 (1.005-1.030)
[2024-10-02 20:48] LABS: Troponin I < 0.01 ng/ml (0.00-0.034)
[2024-10-02 21:02] LABS: C-Reactive Protein 1.5 mg/L (0-4)
--- NOTE | 2024-10-02 21:06 | PC.NURSE ---
rouded on pt and assessed pt, pain is resting comfortably
[2024-10-02 21:07] LABS: Appearance,Urine Slightly Cloudy (Clear); Bilirubin,Urine 1+ (Negative); Color,Urine Dark Yellow (Yellow)
--- NOTE | 2024-10-02 21:20 | PC.NURSE ---
Contacted Delmy in the lab and she stated it would be 5 mins on lipase and 6 mins on mag level
[2024-10-02 21:23] LABS: Lipase 207 U/L (23-300); Magnesium 2.1 mg/dl (1.6-2.3)
[2024-10-02] MEDS: PIPERACILLIN/TAZO 4.5 GM in 0.9 % SODIUM CHLORIDE 100 ML IV (21:31)
[2024-10-02] MEDS: POLYETHYLENE GLYCOL 3350 17 GM PACKET PO (21:44)
[2024-10-02 21:58] LABS: Bacteria,Urine Trace /lpf; RBC,Urine Occasional #/hpf (0-3)
--- NOTE | 2024-10-02 22:31 | PC.NURSE ---
report called to KRISSY fernández
--- NOTE | 2024-10-02 22:39 | P.HP_ITS ---
History of Present Illness *Admission Date: 10/02/24 *Reason for visit:: Abdominal pain *History of present illness: The patient is a 39-year-old male with a history of hypertension presenting with epigastric pain that has been ongoing for a while. He was evaluated in the emergency department approximately two weeks ago, but the initial workup was not immediately actionable, and he was discharged with outpatient follow-up. Earlier today, he was seen by his family doctor and was scheduled for an outpatient ultrasound and CT, but the pain worsened significantly. The patient describes the pain as now localized to the right upper quadrant, radiating to his right shoulder blade and between his shoulders, associated with vomiting, and worsened with oral intake. He denies fever, chills, jaundice, itching, dark urine, or other concerning symptoms. His vomiting is non-bloody and non-bilious. On arrival, he was hemodynamically stable, alert, oriented x4, and in no acute distress other than discomfort from pain and nausea. His initial blood pressure was 175/91, heart rate 76 bpm, and oxygen saturation 100% on room air. On physical exam, he appeared uncomfortable, in mild to moderate distress secondary to pain and nausea, and was actively retching. Abdominal examination revealed si gnificant right upper quadrant tenderness with guarding. EKG showed sinus rhythm at 95 bpm with no acute ischemic changes. He was given Zofran and Dilaudid for symptomatic relief but continued to retch, necessitating additional antiemetic therapy with Phenergan. Bedside [id number] ultrasound revealed a thickened gallbladder wall measuring approximately 3.6 mm, gallstones, and a positive Reed sign, consistent with acute cholecystitis. His laboratory workup was notable for elevated total bilirubin (6.0), AST (255), and ALT (220), consistent with choledocholithiasis. Lipase was negative, ruling out pancreatitis. Urinalysis was unremarkable apart from trace bilirubin. Given these findings, gastroenterology was consulted and agreed to perform an ERCP to address the suspected common bile duct obstruction. Surgery was also consulted and agreed to proceed with cholecystectomy following ERCP. Given the patient?s ongoing significant pain requiring multiple doses of analgesia and his high risk for clinical decompensation, admission was deemed necessary for continued monitoring and definitive management. The patient was started on empiric Zosyn for biliary source infection prophylaxis and MiraLAX for constipation prevention due to opioid administration. He was admitted for further inpatient management, including ERCP and eventual cholecystectomy. [facility] Disclaimer: The information contained in this section may have been updated after the patient was seen, as this information can be updated by other users. Medical History (Updated 10/03/24 @ 14:31 by Tony Mina MD) HTN (hypertension) Surgical History H/O gastric sleeve Family History (Updated 10/02/24 @ 23:22 by Yaima Paez RN) Family history of cancer Family history of hypertension Family history of myocardial infarction Family history of hyperlipidemia Social History (Updated 10/02/24 @ 23:23 by Yaima Paez RN) Smoking Status: Never smoker alcohol intake: never current occupational status: employed Travel in the last 8 weeks: None Have you lived/traveled outside [place] in past 30 days?: No Contact w/someone who lives/traveled outside US past 30 days?: No Exposure to someone with infectious disease in past 14 days?: No Do you have a fever (greater than 100.4 F or 38 C)?: No Have you tested positive for COVID-19: No Exposed to someone with COVID-19 in past 14 days?: No Do you have a sore throat?: No Do you have a cough?: No Do you have any weakness?: No Are you experiencing any nausea/vomitting?: Yes Do you have any diarrhea?: No Are you experiencing any unusual bleeding?: No Do you have any muscle aches/pain?: No Do you have any abdominal pain?: No Are you experiencing loss of taste or smell?: No Review of Systems Review of Systems Review of systems (narrative): 13 point review of systems negative outside HPI Meds Home Medications and Allergies Home Medications ?Medication ?Instructions ?Recorded ?Confirmed ?Type amlodipine 10 mg tablet 10 mg PO DAILY 09/18/24 10/03/24 History valsartan 320 mg tablet 320 mg PO DAILY 09/18/24 10/03/24 History New Prescriptions to Start Prescriptions: Allergies Allergy/AdvReac Type Severity Reaction Status Date / Time No Known Allergies Allergy Verified 02/28/21 09:40 Exam Data for Last 24 hours Vital signs and Labs for Last 24 Hours: Temp Pulse Resp BP Pulse Ox O2 Del Method 97.9 F 59 L 22 129/79 96 Room Air 10/02/24 22:33 10/02/24 22:33 10/02/24 22:33 10/02/24 22:33 10/02/24 22:00 10/02/24 22:33 Laboratory Results - last 24 hr 10/02/24 19:50: WBC 7.1, RBC 5.37, Hgb 16.4, Hct 47.0, MCV 87.5, MCH 30.5, MCHC 34.9, RDW 12.4, Plt Count 216, MPV 10.2, Neut % (Auto) 73.7, Lymph % (Auto) 15.3, [place] % (Auto) 8.1, Eos % (Auto) 1.7, Baso % (Auto) 0.8, Neut # (Auto) 5.3, Lymph # (Auto) 1.1, [place] # (Auto) 0.6, Eos # (Auto) 0.1, Baso # (Auto) 0.1, PT 10.6, INR 0.94, APTT 25.7, Sodium 139, Potassium 3.3 L, Chloride 100, Carbon Dioxide 29, Anion Gap 13.3, BUN 6 L, Creatinine 0.90, Estimated Creat Clear 173, Estimated GFR 94, Est GFR ( Amer) 114, Glucose 109 H, Lactate 1.0, Calcium 9.2, Magnesium 2.1, Total Bilirubin 6.0 H, AST 255 H, ALT 220 H, Alkaline Phosphatase 95, Troponin I < 0.01, C-Reactive Protein 1.5, Total Protein 8.2, Albumin 4.9, Globulin 3.3 H, Albumin/Globulin Ratio 1.5, Lipase 207 10/02/24 20:26: Urine Color Dark yellow, Urine Appearance Slightly cloudy, Urine pH 6.5, Ur Specific [place] 1.025, Urine Protein Negative, Urine Glucose (UA) Negative, Urine Ketones 1+, Urine Blood 1+ A, Urine Nitrate Negative, Urine Bilirubin 1+ A, Urine Urobilinogen 1.0, Ur Leukocyte Esterase Negative, Urine RBC Occasional, Urine WBC None, Ur Squamous Epith Cells None, Urine Bacteria Trace I & O for Last 24 hours: Intake & Output 09/29/24 09/30/24 10/01/24 10/02/24 23:59 23:59 23:59 23:59 Weight 111.13 kg Constitutional Constitutional: no acute distress *Routine HEENT Exam Head: Present normocephalic Eye: Present EOMI and PERRL ENT: Present mucous membranes moist *Routine Neck Exam Neck: Present supple; Absent lymphadenopathy *Routine Respiratory Exam Respiratory: Present CTA bilaterally *Routine Cardiovascular Exam Cardiovascular: Present RRR *Routine Abdominal Exam Abdominal: Present soft, normoactive bowel sounds and tenderness *Routine Rectal Exam Rectal:: deferred *Routine Genitalia Exam Genitalia:: deferred *Routine Extremities Exam Extremities: Absent cyanosis, clubbing or edema *Routine Skin Exam Skin: Present warm; Absent rash *Routine Neurological Exam Neurological: Present alert and oriented X3 Assessment and Plan *Assessment and plan (1) Acute cholecystitis: Status: Deleted Category: Medical Code(s): K81.0 - Acute cholecystitis (2) Choledocholithiasis: Status: Acute Category: Medical Code(s): K80.50 - Calculus of bile duct without cholangitis or cholecystitis without obstruction (3) Acute epigastric pain: Status: Acute Category: Medical Code(s): R10.13 - Epigastric pain Plan Medical decision making: On arrival, the patient was hemodynamically stable but in moderate distress due to pain and nausea, with active retching. His blood pressure was 175/91, heart rate 76 bpm, and oxygen saturation 100% on room air. Exam was significant for right upper quadrant tenderness with guarding. His laboratory workup revealed elevated liver enzymes (AST 255, ALT 220), hyperbilirubinemia (total bilirubin 6.0), and a positive sonographic Reed sign with gallstones on ultrasound, consistent with acute cholecystitis with choledocholithiasis. Given his high risk for clinical decompensation, admission was deemed necessary for further monitoring and definitive management. Acute Calculous Cholecystitis with Choledocholithiasis * Gastroenterology consulted: ERCP planned to evaluate and relieve common bile duct obstruction * General surgery consulted: Agreed to perform laparoscopic cholecystectomy after ERCP * Empiric IV antibiotics started (Zosyn) for broad biliary coverage * IV fluids to maintain hydration and electrolyte balance * NPO status until after ERCP and further surgical planning * Monitor liver function tests, bilirubin, and inflammatory markers daily * Pain control with IV Dilaudid PRN; transition to oral analgesics as tolerated * Continue antiemetics (Zofran, Phenergan) for symptomatic relief Hypertension (BP 175/91 on arrival) * Likely exacerbated by acute pain and stress response * Hold antihypertensives for now given acute illness; resume home regimen once stable * Monitor BP closely and reassess for need for additional agents after pain control Hypokalemia (Potassium 3.3) * Replete potassium to maintain K >4.0 * Monitor potassium levels daily Nausea, Vomiting, and Risk of Constipation from Opioids * Continue antiemetics (Zofran, Phenergan) as needed * Started MiraLAX for opioid-induced constipation prophylaxi * Monitor renal function closely with ongoing IV fluid therapy * Ensure adequate hydration and adjust fluids based on urine output Follow-Up Plan * Perform ERCP first to evaluate and relieve bile duct obstruction * Follow with laparoscopic cholecystectomy per surgical team recommendation * Continue IV antibiotics until after surgical intervention * Repeat liver function tests and bilirubin to assess for improvement * Ensure pain and nausea are well controlled with transition to PO medications as tolerated Rounded on patient after nurse practitioner. Personally examined and interviewed patient. Agree with exam findings and care plan as documented.
--- NOTE | 2024-10-02 22:56 | PC.NURSE ---
Patient arrived to floor via wheelchair from ED at 22:52.
[2024-10-02 23:18] LABS: Troponin I < 0.01 ng/ml (0.00-0.034)
[2024-10-02] MEDS: 0.9 % SODIUM CHLORIDE 1000ML 1,000 ML 100 ML IV (23:36)
[2024-10-03] VITALS (17 sets, daily range): BP systolic 112–152; BP diastolic 53–88; PULSE 60–89; RESP 14–18; TEMP 36.1–36.6; O2SAT 93–100; BMI 33.1
[2024-10-03] MEDS: POTASSIUM CHLORIDE 20MEQ TAB 40 MEQ PO ×2 (01:17→04:08)
[2024-10-03 02:27] LABS: Troponin I < 0.01 ng/ml (0.00-0.034)
[2024-10-03] MEDS: PIPERCILLIN/TAZO 3.375 GM in 0.9 % SODIUM CHLORIDE 50 ML IV ×3 (04:10→20:29)
[2024-10-03 06:37] LABS: Basophils # 0.1 K/mm3 (0-0.2); Eosinophils # 0.1 K/mm3 (0.0-0.4); Eosinophils % 2.6 % (0.1-12.0); Hematocrit 40.1 % (42.0-52.0); Lymphocytes % 20.2 % (10-50); Mean Corpuscular HGB Conc 35.2 g/dL (31.8-35.4); Mean Corpuscular Hemoglobin 30.9 pg (27.0-31.2); Mean Corpuscular Volume 87.7 fl (80-94); Mean Platelet Volume 10.3 fl (7.4-10.4); Monocytes # 0.6 K/mm3 (0.1-1.0); Monocytes % 11.5 % (1.7-9.3); Neutrophils # 3.2 K/mm3 (1.8-7.8); Neutrophils % 64.5 % (37.0-80.0); Platelet Count 187 K/mm3 (142-424); Red Blood Count 4.57 M/mm3 (4.60-6.20); Red Cell Distribution Width 12.4 % (11.5-17.5)
[2024-10-03 06:47] LABS: Chloride 103 mmol/L (98-107)
[2024-10-03 06:48] LABS: Sodium 138 mmol/L (136-145)
[2024-10-03 06:50] LABS: Blood Urea Nitrogen 6 mg/dl (9-20)
[2024-10-03 06:51] LABS: Alanine Aminotransferase 224 U/L (12-78); Albumin/Globulin Ratio 1.6 (1.1-1.8); Alkaline Phosphatase 82 U/L (38-126); Aspartate Amino Transferase 192 U/L (17-59); Bilirubin,Total 4.9 mg/dl (0.2-1.3); Calcium 8.4 mg/dl (8.4-10.2); Carbon Dioxide 29 mmol/L (22.0-30.0); Cholesterol 136 mg/dl (140-200); Creatinine Clearance Estimated 167 mL/min (50-200); Estimated Glomerular Filt Rate 94 ml/min (>60); GFR (African American) 114 ML/MIN (>60); Globulin 2.5 g/dL (1.3-3.2); Glucose 76 mg/dl (74-100); Total Protein,Serum 6.5 g/dl (6.3-8.2); Triglycerides 96 mg/dl (30-150); VLDL Cholesterol 19 mg/dL (0-40)
[2024-10-03 06:52] LABS: Chol/HDL Ratio 3.6 (1-3.5); HDL Cholesterol 38 mg/dl (40-60)
[2024-10-03 07:02] LABS: Direct LDL Cholesterol 63.46 mg/dL (100-129)
--- NOTE | 2024-10-03 07:14 | HMH.PHAINT1 ---
Pharmacy Intervention Comments: MEDICATION RECONCILIATION COMPLETED ON PATIENT USING EXTERNAL FILL HISTORY FROM PHARMACY AND AMANDA REPORT. -SATINDER MENDEZ, KIND
[2024-10-03 07:41] LABS: Hemoglobin 14.2 g/dL (14.1-18.0)
[2024-10-03] MEDS: KETOROLAC 30MG/ML VIAL 15 MG IV ×3 (07:49→17:27)
--- NOTE | 2024-10-03 07:51 | P.CONS_ITS ---
History of Present Illness *Admission Date: 10/02/24 *Reason for visit:: Cholelithiasis (possible cholecystitis); choledocholithiasis *History of present illness: This is a 39-year-old gentleman seen in consultation after presenting to the emergency department with increasing abdominal pain. Evaluation included a bedside ultrasound confirming cholelithiasis. Hyperbilirubinemia also noted. See HPI forwarded from admission H&P/emergency department evaluation below. Currently, the patient feels much better . He states that his pain is down to a 2 out of 10 . No fevers. Forwarded from admission H&P/emergency department evaluation: The patient is a 39-year-old male with a history of hypertension presenting with epigastric pain that has been ongoing for a while. He was evaluated in the emergency department approximately two weeks ago, but the initial workup was not immediately actionable, and he was discharged with outpatient follow-up. Earlier today, he was seen by his family doctor and was scheduled for an outpatient ultrasound and CT, but the pain worsened significantly. The patient describes the pain as now localized to the right upper quadrant, radiating to his right shoulder blade and between his shoulders, associated with vomiting, and worsened with oral intake. He denies fever, chills, jaundice, itching, dark urine, or other concerning symptoms. His vomiting is non-bloody and non-bilious. On arrival, he was hemodynamically stable, alert, oriented x4, and in no acute distress other than discomfort from pain and nausea. His initial blood pressure was 175/91, heart rate 76 bpm, and oxygen saturation 100% on room air. On physical exam, he appeared uncomfortable, in mild to moderate distress secondary to pain and nausea, and was actively retching. Abdominal examination revealed significant right upper quadrant tenderness with guarding. EKG showed sinus rhythm at 95 bpm with no acute ischemic changes. He was given Zofran and Dilaudid for symptomatic relief but continued to retch, necessitating additional antiemetic therapy with Phenergan. Bedside [id number] ultrasound revealed a thickened gallbladder wall measuring approximately 3.6 mm, gallstones, and a positive Reed sign, consistent with acute cholecystitis. His laboratory workup was notable for elevated total bilirubin (6.0), AST (255), and ALT (220), consistent with choledocholithiasis. Lipase was negative, ruling out pancreatitis. Urinalysis was unremarkable apart from trace bilirubin. Given these findings, gastroenterology was consulted and agreed to perform an ERCP to address the suspected common bile duct obstruction. Surgery was also consulted and agreed to proceed with cholecystectomy following ERCP. Given the patient?s ongoing significant pain requiring multiple doses of analgesia and his high risk for clinical decompensation, admission was deemed necessary for continued monitoring and definitive management. The patient was started on empiric Zosyn for biliary source infection prophylaxis and MiraLAX for constipation prevention due to opioid administration. He was admitted for further inpatient management, including ERCP and eventual cholecystectomy. [facility] Disclaimer: The information contained in this section may have been updated after the patient was seen, as this information can be updated by other users. Medical History (Updated 10/03/24 @ 07:55 by Rohan Huang MD) HTN (hypertension) Surgical History H/O gastric sleeve Family History (Updated 10/02/24 @ 23:22 by Yaima Paez RN) Family history of cancer Family history of hypertension Family history of myocardial infarction Family history of hyperlipidemia Social History (Updated 10/02/24 @ 23:23 by Yaima Paez RN) Smoking Status: Never smoker alcohol intake: never current occupational status: employed Travel in the last 8 weeks: None Have you lived/traveled outside [place] in past 30 days?: No Contact w/someone who lives/traveled outside US past 30 days?: No Exposure to someone with infectious disease in past 14 days?: No Do you have a fever (greater than 100.4 F or 38 C)?: No Have you tested positive for COVID-19: No Exposed to someone with COVID-19 in past 14 days?: No Do you have a sore throat?: No Do you have a cough?: No Do you have any weakness?: No Are you experiencing any nausea/vomitting?: Yes Do you have any diarrhea?: No Are you experiencing any unusual bleeding?: No Do you have any muscle aches/pain?: No Do you have any abdominal pain?: No Are you experiencing loss of taste or smell?: No Meds Home Medications and Allergies Home Medications ?Medication ?Instructions ?Recorded ?Confirmed ?Type amlodipine 10 mg tablet 10 mg PO DAILY 09/18/24 10/03/24 History valsartan 320 mg tablet 320 mg PO DAILY 09/18/24 10/03/24 History New Prescriptions to Start Prescriptions: Allergies Allergy/AdvReac Type Severity Reaction Status Date / Time No Known Allergies Allergy Verified 02/28/21 09:40 Exam (Inpt) Vital signs and Labs for Last 24 Hours: Temp Pulse Resp BP Pulse Ox O2 Del Method 97.6 F 75 17 129/79 94 L Room Air 10/03/24 00:00 10/03/24 00:00 10/03/24 00:00 10/03/24 00:00 10/03/24 00:00 10/03/24 06:17 Laboratory Results - last 24 hr 10/02/24 19:50: WBC 7.1, RBC 5.37, Hgb 16.4, Hct 47.0, MCV 87.5, MCH 30.5, MCHC 34.9, RDW 12.4, Plt Count 216, MPV 10.2, Neut % (Auto) 73.7, Lymph % (Auto) 15.3, [place] % (Auto) 8.1, Eos % (Auto) 1.7, Baso % (Auto) 0.8, Neut # (Auto) 5.3, Lymph # (Auto) 1.1, [place] # (Auto) 0.6, Eos # (Auto) 0.1, Baso # (Auto) 0.1, PT 10.6, INR 0.94, APTT 25.7, Sodium 139, Potassium 3.3 L, Chloride 100, Carbon Dioxide 29, Anion Gap 13.3, BUN 6 L, Creatinine 0.90, Estimated Creat Clear 173, Estimated GFR 94, Est GFR ( Amer) 114, Glucose 109 H, Lactate 1.0, Calcium 9.2, Magnesium 2.1, Total Bilirubin 6.0 H, AST 255 H, ALT 220 H, Alkaline Phosphatase 95, Troponin I < 0.01, C-Reactive Protein 1.5, Total Protein 8.2, Albumin 4.9, Globulin 3.3 H, Albumin/Globulin Ratio 1.5, Lipase 207 10/02/24 20:26: Urine Color Dark yellow, Urine Appearance Slightly cloudy, Urine pH 6.5, Ur Specific [place] 1.025, Urine Protein Negative, Urine Glucose (UA) Negative, Urine Ketones 1+, Urine Blood 1+ A, Urine Nitrate Negative, Urine Bilirubin 1+ A, Urine Urobilinogen 1.0, Ur Leukocyte Esterase Negative, Urine RBC Occasional, Urine WBC None, Ur Squamous Epith Cells None, Urine Bacteria Trace 10/02/24 22:45: Troponin I < 0.01 10/03/24 01:50: Troponin I < 0.01 10/03/24 05:54: WBC 5.0 D, RBC 4.57 L, Hgb 14.2 D, Hct 40.1 L, MCV 87.7, MCH 30.9, MCHC 35.2, RDW 12.4, Plt Count 187, MPV 10.3, Neut % (Auto) 64.5, Lymph % (Auto) 20.2, [place] % (Auto) 11.5 H, Eos % (Auto) 2.6, Baso % (Auto) 1.0, Neut # (Auto) 3.2, Lymph # (Auto) 1.0, [place] # (Auto) 0.6, Eos # (Auto) 0.1, Baso # (Auto) 0.1, Sodium 138, Potassium 4.0 D, Chloride 103, Carbon Dioxide 29, Anion Gap 10.0, BUN 6 L, Creatinine 0.90, Estimated Creat Clear 167, Estimated GFR 94, Est GFR ( Amer) 114, Glucose 76 D, Calcium 8.4, Magnesium 2.0, Total Bilirubin 4.9 H, AST 192 H, ALT 224 H, Alkaline Phosphatase 82, Total Protein 6.5, Albumin 4.0 D, Globulin 2.5, Albumin/Globulin Ratio 1.6, Triglycerides 96, Cholesterol 136 L, LDL Cholesterol Direct 63.46 L, VLDL Cholesterol 19, HDL Cholesterol 38 L, Cholesterol/HDL Ratio 3.6 H I & O for Labs for Last 24 Hours: Intake & Output 09/30/24 10/01/24 10/02/24 10/03/24 11:59 11:59 11:59 11:59 Output Total 500 / 500 Balance -500 / -500 Weight 236 lb 12.8 oz Constitutional: no acute distress Respiratory: Absent respiratory distress Cardiac: Absent Tachycardia GI: Present soft Results Labs 10/03/24 05:54 10/03/24 05:54 Labs: Laboratory Results - last 24 hr 10/02/24 19:50: WBC 7.1, RBC 5.37, Hgb 16.4, Hct 47.0, MCV 87.5, MCH 30.5, MCHC 34.9, RDW 12.4, Plt Count 216, MPV 10.2, Neut % (Auto) 73.7, Lymph % (Auto) 15.3, [place] % (Auto) 8.1, Eos % (Auto) 1.7, Baso % (Auto) 0.8, Neut # (Auto) 5.3, Lymph # (Auto) 1.1, [place] # (Auto) 0.6, Eos # (Auto) 0.1, Baso # (Auto) 0.1, PT 10.6, INR 0.94, APTT 25.7, Sodium 139, Potassium 3.3 L, Chloride 100, Carbon Dioxide 29, Anion Gap 13.3, BUN 6 L, Creatinine 0.90, Estimated Creat Clear 173, Estimated GFR 94, Est GFR ( Amer) 114, Glucose 109 H, Lactate 1.0, Calcium 9.2, Magnesium 2.1, Total Bilirubin 6.0 H, AST 255 H, ALT 220 H, Alkaline Phosphatase 95, Troponin I < 0.01, C-Reactive Protein 1.5, Total Protein 8.2, Albumin 4.9, Globulin 3.3 H, Albumin/Globulin Ratio 1.5, Lipase 207 10/02/24 20:26: Urine Color Dark yellow, Urine Appearance Slightly cloudy, Urine pH 6.5, Ur Specific [place] 1.025, Urine Protein Negative, Urine Glucose (UA) Negative, Urine Ketones 1+, Urine Blood 1+ A, Urine Nitrate Negative, Urine Bilirubin 1+ A, Urine Urobilinogen 1.0, Ur Leukocyte Esterase Negative, Urine RBC Occasional, Urine WBC None, Ur Squamous Epith Cells None, Urine Bacteria Trace 10/02/24 22:45: Troponin I < 0.01 10/03/24 01:50: Troponin I < 0.01 10/03/24 05:54: WBC 5.0 D, RBC 4.57 L, Hgb 14.2 D, Hct 40.1 L, MCV 87.7, MCH 30.9, MCHC 35.2, RDW 12.4, Plt Count 187, MPV 10.3, Neut % (Auto) 64.5, Lymph % (Auto) 20.2, [place] % (Auto) 11.5 H, Eos % (Auto) 2.6, Baso % (Auto) 1.0, Neut # (Auto) 3.2, Lymph # (Auto) 1.0, [place] # (Auto) 0.6, Eos # (Auto) 0.1, Baso # (Auto) 0.1, Sodium 138, Potassium 4.0 D, Chloride 103, Carbon Dioxide 29, Anion Gap 10.0, BUN 6 L, Creatinine 0.90, Estimated Creat Clear 167, Estimated GFR 94, Est GFR ( Amer) 114, Glucose 76 D, Calcium 8.4, Magnesium 2.0, Total Bilirubin 4.9 H, AST 192 H, ALT 224 H, Alkaline Phosphatase 82, Total Protein 6.5, Albumin 4.0 D, Globulin 2.5, Albumin/Globulin Ratio 1.6, Triglycerides 96, Cholesterol 136 L, LDL Cholesterol Direct 63.46 L, VLDL Cholesterol 19, HDL Cholesterol 38 L, Cholesterol/HDL Ratio 3.6 H Assessment and Plan *Assessment and plan (1) Cholelithiasis: Status: Acute Qualifiers: Cholelithiasis location: gallbladder and bile duct Cholecystitis presence: without cholecystitis Biliary obstruction: with biliary obstruction Qualified Code(s): K80.71 - Calculus of gallbladder and bile duct without cholecystitis with obstruction Category: Medical Code(s): K80.20 - Calculus of gallbladder without cholecystitis without obstruction Plan: Currently equivocal with regard to concomitant cholecystitis. The patient is afebrile and his white blood cell count remains normal. Currently, he feels much better . Plan cholecystectomy in the near future (after ERCP). Timing of cholecystectomy (this hospitalization versus in the very near future as an outpatient) to be determined. (2) Choledocholithiasis: Status: Acute Category: Medical Code(s): K80.50 - Calculus of bile duct without cholangitis or cholecystitis without obstruction Plan: Management as per the gastroenterology service
[2024-10-03] MEDS: 0.9 % SODIUM CHLORIDE 1000ML 1,000 ML 100 ML IV (09:39)
--- NOTE | 2024-10-03 14:28 | EXP.ACUTE.PN ---
Subjective *Date: 10/03/24 *Time: 14:28 Interval history: Pain somewhat better today. Denies any nausea or vomiting. Stable on room air. Afebrile. Slight improvement in liver function labs. N.p.o., awaiting ERCP Medical Exam Vital signs and Labs for Last 24 Hours: Vital Signs Temp Pulse Pulse Resp BP BP Pulse Ox 10/03/24 13:00 10/03/24 11:00 10/03/24 09:00 10/03/24 07:59 98 F 65 16 119/72 98 10/03/24 07:53 10/03/24 06:17 10/03/24 04:58 10/03/24 02:37 10/03/24 00:39 10/03/24 00:00 97.6 F 75 17 129/79 94 L 10/02/24 23:00 10/02/24 22:33 97.9 F 59 L 22 129/79 10/02/24 22:30 59 L 129/79 95 10/02/24 22:09 10/02/24 22:09 97.5 F L 78 17 129/79 94 L 10/02/24 22:00 57 L 125/74 96 10/02/24 21:32 70 136/88 97 10/02/24 20:30 159/79 H 10/02/24 20:14 77 158/96 H 99 10/02/24 20:00 97 H 157/110 H 100 10/02/24 19:50 77 175/91 H 100 10/02/24 19:48 98.5 F 76 22 175/91 H 100 O2 Del Method 10/03/24 13:00 Room Air 10/03/24 11:00 Room Air 10/03/24 09:00 Room Air 10/03/24 07:59 Room Air 10/03/24 07:53 Room Air 10/03/24 06:17 Room Air 10/03/24 04:58 Room Air 10/03/24 02:37 Room Air 10/03/24 00:39 Room Air 10/03/24 00:00 Room Air 10/02/24 23:00 Room Air 10/02/24 22:33 Room Air 10/02/24 22:30 Room Air 10/02/24 22:09 Room Air 10/02/24 22:09 Room Air 10/02/24 22:00 Room Air 10/02/24 21:32 Room Air 10/02/24 20:30 Room Air 10/02/24 20:14 Room Air 10/02/24 20:00 Room Air 10/02/24 19:50 Room Air 10/02/24 19:48 Room Air Intake and Output 10/02/24 10/03/24 10/03/24 23:59 07:59 15:59 Output Total 500 / 500 0 / 500 Balance -500 / -500 0 / -500 Output: Output, Urine Amount 500 / 500 0 / 500 Other: Weight 107.955 kg 107.411 kg Patient Weight 10/03/24 23:59 Weight 107.411 kg Laboratory Results - last 24 hr 10/02/24 19:50: WBC 7.1, RBC 5.37, Hgb 16.4, Hct 47.0, MCV 87.5, MCH 30.5, MCHC 34.9, RDW 12.4, Plt Count 216, MPV 10.2, Neut % (Auto) 73.7, Lymph % (Auto) 15.3, [place] % (Auto) 8.1, Eos % (Auto) 1.7, Baso % (Auto) 0.8, Neut # (Auto) 5.3, Lymph # (Auto) 1.1, [place] # (Auto) 0.6, Eos # (Auto) 0.1, Baso # (Auto) 0.1, PT 10.6, INR 0.94, APTT 25.7, Sodium 139, Potassium 3.3 L, Chloride 100, Carbon Dioxide 29, Anion Gap 13.3, BUN 6 L, Creatinine 0.90, Estimated Creat Clear 173, Estimated GFR 94, Est GFR ( Amer) 114, Glucose 109 H, Lactate 1.0, Calcium 9.2, Magnesium 2.1, Total Bilirubin 6.0 H, AST 255 H, ALT 220 H, Alkaline Phosphatase 95, Troponin I < 0.01, C-Reactive Protein 1.5, Total Protein 8.2, Albumin 4.9, Globulin 3.3 H, Albumin/Globulin Ratio 1.5, Lipase 207 10/02/24 20:26: Urine Color Dark yellow, Urine Appearance Slightly cloudy, Urine pH 6.5, Ur Specific [employer] 1.025, Urine Protein Negative, Urine Glucose (UA) Negative, Urine Ketones 1+, Urine Blood 1+ A, Urine Nitrate Negative, Urine Bilirubin 1+ A, Urine Urobilinogen 1.0, Ur Leukocyte Esterase Negative, Urine RBC Occasional, Urine WBC None, Ur Squamous Epith Cells None, Urine Bacteria Trace 10/02/24 22:45: Troponin I < 0.01 10/03/24 01:50: Troponin I < 0.01 10/03/24 05:54: WBC 5.0 D, RBC 4.57 L, Hgb 14.2 D, Hct 40.1 L, MCV 87.7, MCH 30.9, MCHC 35.2, RDW 12.4, Plt Count 187, MPV 10.3, Neut % (Auto) 64.5, Lymph % (Auto) 20.2, [place] % (Auto) 11.5 H, Eos % (Auto) 2.6, Baso % (Auto) 1.0, Neut # (Auto) 3.2, Lymph # (Auto) 1.0, [place] # (Auto) 0.6, Eos # (Auto) 0.1, Baso # (Auto) 0.1, Sodium 138, Potassium 4.0 D, Chloride 103, Carbon Dioxide 29, Anion Gap 10.0, BUN 6 L, Creatinine 0.90, Estimated Creat Clear 167, Estimated GFR 94, Est GFR ( Amer) 114, Glucose 76 D, Calcium 8.4, Magnesium 2.0, Total Bilirubin 4.9 H, AST 192 H, ALT 224 H, Alkaline Phosphatase 82, Total Protein 6.5, Albumin 4.0 D, Globulin 2.5, Albumin/Globulin Ratio 1.6, Triglycerides 96, Cholesterol 136 L, LDL Cholesterol Direct 63.46 L, VLDL Cholesterol 19, HDL Cholesterol 38 L, Cholesterol/HDL Ratio 3.6 H I & O for Labs for Last 24 Hours: Intake & Output 09/30/24 10/01/24 10/02/24 10/03/24 23:59 23:59 23:59 23:59 Output Total 500 / 500 Balance -500 / -500 Weight 107.955 kg 107.411 kg Constitutional: Present no acute distress, obese and cooperative Head: Present atraumatic and normocephalic ENT: Present normal exam Respiratory: Present normal respiratory effort; Absent rhonchi, wheezes or crackles Cardiac: Present Reg Rate and Rhythm GI: Present soft, tenderness (Right upper quadrant) and normal bowel sounds; Absent distention, guarding or rebound Extremities: Present normal inspection and full ROM Skin: Present intact; Absent erythema Neuro: Present Grossly Intact, alert, awake, oriented x 3 and moves all extremities Assessment and Plan *Assessment and plan (1) Cholelithiasis: Status: Acute Qualifiers: Cholelithiasis location: gallbladder and bile duct Cholecystitis presence: without cholecystitis Biliary obstruction: with biliary obstruction Qualified Code(s): K80.71 - Calculus of gallbladder and bile duct without cholecystitis with obstruction Category: Medical Code(s): K80.20 - Calculus of gallbladder without cholecystitis without obstruction (2) Acute cholecystitis: Status: Deleted Category: Medical Code(s): K81.0 - Acute cholecystitis (3) Choledocholithiasis: Status: Acute Category: Medical Code(s): K80.50 - Calculus of bile duct without cholangitis or cholecystitis without obstruction (4) Acute epigastric pain: Status: Acute Category: Medical Code(s): R10.13 - Epigastric pain (5) Obesity: Status: Acute Category: Medical Code(s): E66.9 - Obesity, unspecified Plan 39-year-old male who presented with abdominal pain. On arrival, the patient was hemodynamically stable but in moderate distress due to pain and nausea, with active retching. His blood pressure was 175/91, heart rate 76 bpm, and oxygen saturation 100% on room air. Exam was significant for right upper quadrant tenderness with guarding. His laboratory workup revealed elevated liver enzymes (AST 255, ALT 220), hyperbilirubinemia (total bilirubin 6.0), and a positive sonographic Reed sign with gallstones on ultrasound, consistent with acute cholecystitis with choledocholithiasis. Given his high risk for clinical decompensation, admission was deemed necessary for further monitoring and definitive management. Planning for ERCP today. Continues to require inpatient management. GI and surgery consulted. Problems addressed as follows: Acute Calculous Cholecystitis with Choledocholithiasis versus cholelithiasis Nausea and vomiting - Discussed case with surgery today, recommend cholecystectomy in the near future after ERCP. Will consider within the next week. - Discussed case with GI, planning on ERCP this afternoon. Will monitor overnight with serial labs to monitor kidney and liver function -Slight improvement in liver function this morning with bilirubin 4.9, AST 192, ALT 224, Alkaline phosphatase normal 82 -Empiric Zosyn every 6 hours -N.p.o. pending ERCP. Will advance diet thereafter -Repeat CBC, CMP, magnesium ordered for the morning - Pain control with IV Dilaudid PRN; transition to oral analgesics as tolerated - continue antiemetics (Zofran, Phenergan) for symptomatic relief -White count normal at 5, hemoglobin 14. Hypertension (BP 175/91 on arrival) - Likely exacerbated by acute pain and stress response -Improved this morning at 119/72. Will resume amlodipine and valsartan when appropriate. Hypokalemia (Potassium 3.3 on admission) - Potassium improved this morning at 4.0. Kidney function normal with BUN 6, creatinine 0.9; magnesium 2 point -Replace per electrolyte protocol Obesity complicates all aspects of care Full code N.p.o. pending ERCP Holding anticoagulation in the setting of procedure
--- NOTE | 2024-10-03 14:46 | P.PNANES_ITS ---
[facility] Disclaimer: The information contained in this section may have been updated after the patient was seen, as this information can be updated by other users. Medical History (Updated 10/03/24 @ 14:31 by Tony Mina MD) HTN (hypertension) Surgical History H/O gastric sleeve Family History (Updated 10/02/24 @ 23:22 by Yaima Paez RN) Other Family history of cancer Family history of hyperlipidemia Family history of hypertension Family history of myocardial infarction Social History (Updated 10/02/24 @ 23:23 by Yaima Paez RN) Smoking Status: Never smoker alcohol intake: never substance use type: denies use current occupational status: employed Travel in the last 8 weeks: None [facility] Anesthesia Checklist Patient Identification Patient Identification: Arm Band Structural Data Admitted From: Home Planned Operative Procedure/s: ERCP Consent for Planned Operative Procedure(s) Verified: Yes Verified Documents: Surgical Consent and History and Physical NPO Status Verified Time NPO: 00:00 Additional verifications Anesthesia Reactions: No Airway Assessment Mallampati Score:: Class II C-Spine Mobility Assessed: Yes TMJ Mobility Assessed: Yes Dentition: Good Dentition Neurological Assessment Level of Consciousness: Awake, Alert and Appropriate Anesthesia Plan Anesthesia Risk discussed: Yes Anesthesia Plan: Verified ASA Class: II Anesthesia Type: MAC
--- NOTE | 2024-10-03 15:04 | P.HP_ITS ---
History of Present Illness *Admission Date: 10/02/24 *History of present illness: This is a 39-year-old gentleman seen in consultation after presenting to the emergency department with increasing abdominal pain. Evaluation included a bedside ultrasound confirming cholelithiasis. Hyperbilirubinemia also noted. See HPI forwarded from admission H&P/emergency department evaluation below. Currently, the patient feels much better . He states that his pain is down to a 2 out of 10 . No fevers. Forwarded from admission H&P/emergency department evaluation: The patient is a 39-year-old male with a history of hypertension presenting with epigastric pain that has been ongoing for a while. He was evaluated in the emergency department approximately two weeks ago, but the initial workup was not immediately actionable, and he was discharged with outpatient follow-up. Earlier today, he was seen by his family doctor and was scheduled for an outpatient ultrasound and CT, but the pain worsened significantly. The patient describes the pain as now localized to the right upper quadrant, radiating to his right s houlder blade and between his shoulders, associated with vomiting, and worsened with oral intake. He denies fever, chills, jaundice, itching, dark urine, or other concerning symptoms. His vomiting is non-bloody and non-bilious. On arrival, he was hemodynamically stable, alert, oriented x4, and in no acute distress other than discomfort from pain and nausea. His initial blood pressure was 175/91, heart rate 76 bpm, and oxygen saturation 100% on room air. On physical exam, he appeared uncomfortable, in mild to moderate distress secondary to pain and nausea, and was actively retching. Abdominal examination revealed significant right upper quadrant tenderness with guarding. EKG showed sinus rhythm at 95 bpm with no acute ischemic changes. He was given Zofran and Dilaudid for symptomatic relief but continued to retch, necessitating additional antiemetic therapy with Phenergan. Bedside yhzvo-ke-uijh ultrasound revealed a thickened gallbladder wall measuring approximately 3.6 mm, gallstones, and a positive Reed sign, consistent with acute cholecystitis. His laboratory workup was notable for elevated total bilirubin (6.0), AST (255), and ALT (220), consistent with choledocholithiasis. Lipase was negative, ruling out pancreatitis. Urinalysis was unremarkable apart from trace bilirubin. Given these findings, gastroenterology was consulted and agreed to perform an ERCP to address the suspected common bile duct obstruction. Surgery was also consulted and agreed to proceed with cholecystectomy following ERCP. Given the patient?s ongoing significant pain requiring multiple doses of analgesia and his high risk for clinical decompensation, admission was deemed necessary for continued monitoring and definitive management. The patient was started on empiric Zosyn for biliary source infection prophylaxis and MiraLAX for constipation prevention due to opioid administration. He was admitted for further inpatient management, including ERCP and eventual cholecystectomy. [facility] Disclaimer: The information contained in this section may have been updated after the patient was seen, as this information can be updated by other users. Medical History (Updated 10/03/24 @ 15:06 by Abdirahman Langford II, MD) HTN (hypertension) Surgical History H/O gastric sleeve Family History (Updated 10/02/24 @ 23:22 by Yaima Paez RN) Other Family history of cancer Family history of hyperlipidemia Family history of hypertension Family history of myocardial infarction Social History (Updated 10/03/24 @ 14:48 by Cortez Rosario CRNA) Smoking Status: Never smoker alcohol intake: never substance use type: denies use current occupational status: employed Travel in the last 8 weeks: None Have you lived/traveled outside [place] in past 30 days?: No Contact w/someone who lives/traveled outside US past 30 days?: No Exposure to someone with infectious disease in past 14 days?: No Do you have a fever (greater than 100.4 F or 38 C)?: No Have you tested positive for COVID-19: No Exposed to someone with COVID-19 in past 14 days?: No Do you have a sore throat?: No Do you have a cough?: No Do you have any weakness?: No Are you experiencing any nausea/vomitting?: Yes Do you have any diarrhea?: No Are you experiencing any unusual bleeding?: No Do you have any muscle aches/pain?: No Do you have any abdominal pain?: No Are you experiencing loss of taste or smell?: No Other Medical History Have you received the Flu Vaccine for this season: No Have you received the Pneumonia Vaccine: No Meds Home Medications and Allergies Home Medications ?Medication ?Instructions ?Recorded ?Confirmed ?Type amlodipine 10 mg tablet 10 mg PO DAILY 09/18/24 10/03/24 History valsartan 320 mg tablet 320 mg PO DAILY 09/18/24 10/03/24 History New Prescriptions to Start Prescriptions: Allergies Allergy/AdvReac Type Severity Reaction Status Date / Time No Known Allergies Allergy Verified 02/28/21 09:40 Exam Data for Last 24 hours Vital signs and Labs for Last 24 Hours: Temp Pulse Resp BP Pulse Ox O2 Del Method 98 F 65 16 119/72 98 Room Air 10/03/24 07:59 10/03/24 07:59 10/03/24 07:59 10/03/24 07:59 10/03/24 07:59 10/03/24 13:00 Laboratory Results - last 24 hr 10/02/24 19:50: WBC 7.1, RBC 5.37, Hgb 16.4, Hct 47.0, MCV 87.5, MCH 30.5, MCHC 34.9, RDW 12.4, Plt Count 216, MPV 10.2, Neut % (Auto) 73.7, Lymph % (Auto) 15.3, [place] % (Auto) 8.1, Eos % (Auto) 1.7, Baso % (Auto) 0.8, Neut # (Auto) 5.3, Lymph # (Auto) 1.1, [place] # (Auto) 0.6, Eos # (Auto) 0.1, Baso # (Auto) 0.1, PT 10.6, INR 0.94, APTT 25.7, Sodium 139, Potassium 3.3 L, Chloride 100, Carbon Dioxide 29, Anion Gap 13.3, BUN 6 L, Creatinine 0.90, Estimated Creat Clear 173, Estimated GFR 94, Est GFR ( Amer) 114, Glucose 109 H, Lactate 1.0, Calcium 9.2, Magnesium 2.1, Total Bilirubin 6.0 H, AST 255 H, ALT 220 H, Alkaline Phosphatase 95, Troponin I < 0.01, C-Reactive Protein 1.5, Total Protein 8.2, Albumin 4.9, Globulin 3.3 H, Albumin/Globulin Ratio 1.5, Lipase 207 10/02/24 20:26: Urine Color Dark yellow, Urine Appearance Slightly cloudy, Urine pH 6.5, Ur Specific [place] 1.025, Urine Protein Negative, Urine Glucose (UA) Negative, Urine Ketones 1+, Urine Blood 1+ A, Urine Nitrate Negative, Urine Bilirubin 1+ A, Urine Urobilinogen 1.0, Ur Leukocyte Esterase Negative, Urine RBC Occasional, Urine WBC None, Ur Squamous Epith Cells None, Urine Bacteria Trace 10/02/24 22:45: Troponin I < 0.01 10/03/24 01:50: Troponin I < 0.01 10/03/24 05:54: WBC 5.0 D, RBC 4.57 L, Hgb 14.2 D, Hct 40.1 L, MCV 87.7, MCH 30.9, MCHC 35.2, RDW 12.4, Plt Count 187, MPV 10.3, Neut % (Auto) 64.5, Lymph % (Auto) 20.2, [place] % (Auto) 11.5 H, Eos % (Auto) 2.6, Baso % (Auto) 1.0, Neut # (Auto) 3.2, Lymph # (Auto) 1.0, [place] # (Auto) 0.6, Eos # (Auto) 0.1, Baso # (Auto) 0.1, Sodium 138, Potassium 4.0 D, Chloride 103, Carbon Dioxide 29, Anion Gap 10.0, BUN 6 L, Creatinine 0.90, Estimated Creat Clear 167, Estimated GFR 94, Est GFR ( Amer) 114, Glucose 76 D, Calcium 8.4, Magnesium 2.0, Total Bilirubin 4.9 H, AST 192 H, ALT 224 H, Alkaline Phosphatase 82, Total Protein 6.5, Albumin 4.0 D, Globulin 2.5, Albumin/Globulin Ratio 1.6, Triglycerides 96, Cholesterol 136 L, LDL Cholesterol Direct 63.46 L, VLDL Cholesterol 19, HDL Cholesterol 38 L, Cholesterol/HDL Ratio 3.6 H I & O for Last 24 hours: Intake & Output 09/30/24 10/01/24 10/02/24 10/03/24 23:59 23:59 23:59 23:59 Output Total 500 / 500 Balance -500 / -500 Weight 238 lb 236 lb 12.8 oz *Routine HEENT Exam Head: Present normocephalic Eye: Present scleral injection ENT: Present mucous membranes moist *Routine Respiratory Exam Respiratory: Present CTA bilaterally and able to speak in complete sentences *Routine Cardiovascular Exam Cardiovascular: Present RRR *Routine Abdominal Exam Abdominal: Present soft and tenderness Comments: Normoactive bowel sounds, soft, tenderness in the right upper quadrant, positive Reed's *Routine Rectal Exam Rectal:: no hemorrhoids *Routine Genitalia Exam Genitalia:: normal male Assessment and Plan *Assessment and plan (1) Choledocholithiasis: Status: Acute Category: Medical Code(s): K80.50 - Calculus of bile duct without cholangitis or cholecystitis without obstruction (2) Jaundice: Status: Acute Category: Medical Code(s): R17 - Unspecified jaundice (3) Right upper quadrant abdominal pain: Status: Acute Category: Medical Code(s): R10.11 - Right upper quadrant pain (4) Elevated bilirubin: Status: Acute Category: Medical Code(s): R17 - Unspecified jaundice Plan 1. Right upper quadrant abdominal pain with jaundice and elevated bilirubin with ultrasound showing some dilated biliary system and common bile duct stone. ERCP indicated for biliary clearance.
--- NOTE | 2024-10-03 15:07 | HMH.PROCNOTE ---
[facility] Procedure Note Date: 10/03/24 Time: 16:18 Procedure Note:: ERCP procedure Report: Endoscopic retrograde cholangiopancreatography with needle-knife sphincterotomy Endoscopist: Abdirahman Langford II, MD Referring Physician: Jerardo Conrad M.D. Date of Procedure: October 03, 2024 Equipment: Olympus 180 side viewing endoscope duodenoscope Sedation: MAC sedation Indication: Mr. Johnson is a 39-year-old gentleman who presented with right upper quadrant abdominal pain radiating into the back. This has been going on for 3 to 4 months intermittently but this has gradually worsened and does state that this will radiate into the shoulder blades. The patient has had darkened urine and acholic stools. This became more intense and he came to the emergency department yesterday. His labs yesterday did not show a white blood cell count and his white blood cell count was 5.0 with hemoglobin 14.2. Liver chemistries showed total bilirubin 6.0 and this declined to 4.9 today. This was 1.5 on 09/18/2024. His ALT yesterday was 220 and it is 224 today. Imaging of the abdomen on 09/18/2024 showed unremarkable gallbladder and biliary ducts. Vvcmd-he-xcto ultrasound yesterday in the emergency department showed some mild biliary ductal dilation. There were no discrete signs of cholecystitis. ERCP is performed for further evaluation to rule out choledocholithiasis. The patient's lipase on admission was normal. Procedure: Prior to the procedure, a history and physical exam was performed, and patient's medications and allergies were reviewed. The risks, benefits and alternatives of the sedation and procedure were discussed with the patient. All questions were answered and informed consent was obtained. The patient was brought to the fluoroscopic radiology room. Patient identification and proposed procedure were verified by the physician and the nurse. The patient was placed in a swimmer's position between left lateral decubitus and prone position and the scope was passed under direct vision. Throughout the procedure, the patient's blood pressure, pulse, and oxygen saturations were monitored continuously. The ERCP was accomplished without difficulty. The patient tolerated the procedure well. Findings: The duodenoscope was passed directly into the upper esophagus and advanced to the second portion of the duodenum. The ampulla was well-visualized. There was some duodenal spasm and glucagon was administered during the case. The common bile duct was selectively cannulated but not completely cannulated with the tome or the guidewire. A cholangiogram initially showed no discrete filling defects but there was some tightness at the ampulla. The common bile duct was very difficult to cannulate with a guidewire or cannula so a needle-knife was utilized and a needle-knife sphincterotomy was performed with excellent flow of bile. Even after needle-knife sphincterotomy, there is still difficult cannulation but a good cholangiogram was performed and there was no stones or strictures identified and there was excellent flow of bile. There was some flakes of debris that flowed with the bile (minor choledocholithiasis). The pancreatic duct was not cannulated. The procedure was ended at 1 hour. Impression: 1. Minor choledocholithiasis (small debris) with probable small amount of sludge in the distal CBD status post needle-knife biliary sphincterotomy and excellent bile flow?post cholangiogram shows no filling defect Plan: I will discuss the case with the patient and family. I would follow chemistries in the a.m. and begin clear liquids tonight and advance diet as tolerated.
[2024-10-03] MEDS: INDOMETHACIN 50MG SUPPOSITORY 50 MG RC (16:20)
--- NOTE | 2024-10-03 16:34 | P.PNANES_ITS ---
[facility] Anesthesia Record Part I Anesthesia Record I Intake, IV Amount: 800 Hydration: Adequate Estimated blood loss (mL): 10 Urine output (mL): 0 Blood Products used (#): none Blood Pressure: 132/53 SaO2: 93 Pulse Rate: 89 Airway Patency: Patent Respiratory Rate: 18 Temperature: 96.9 F Patient is:: Awake (Talking) and Stable Stable to PACU at:: 16:31
--- NOTE | 2024-10-03 16:36 | FL_ITS ---
FINAL REPORT CLINICAL HISTORY: ERCP in OR 106.61 mGy 224 seconds FINDINGS: FLUOROSCOPY LESS THAN 1 HOUR HISTORY: Fluoroscopy guidance. FINDINGS: Fluoroscopic guidance was provided for ERCP in the OR. Two spot films were obtained. A total of 224 seconds of fluoroscopy time were used. DAP: 106.61 mGy IMPRESSION: As above. Reviewed, Interpreted and Dictated by Malik Hickman MD Transcribed by Jalyn Summers Authenticated and . [facility]
[2024-10-03] MEDS: ONDANSETRON 4MG/2ML VIAL 4 MG IV (17:30)
[2024-10-03] MEDS: SODIUM CHLORIDE 0.9% 10ML VIAL 10 ML IV (20:29)
[2024-10-03] MEDS: HYDROMORPHONE 2MG/ML SYRINGE 2 MG IV (20:30)
[2024-10-03] MEDS: PANTOPRAZOLE 40MG VIAL 40 MG IV (20:30)
[2024-10-04] VITALS (20 sets, daily range): BP systolic 114–153; BP diastolic 56–84; PULSE 73–101; RESP 12–20; TEMP 6.1–43; O2SAT 91–100; BMI 33.3
[2024-10-04] MEDS: KETOROLAC 30MG/ML VIAL 15 MG IV ×3 (00:48→18:52)
[2024-10-04] MEDS: ONDANSETRON 4MG/2ML VIAL 4 MG IV (00:54)
[2024-10-04] MEDS: HYDROMORPHONE 2MG/ML SYRINGE 2 MG IV ×5 (02:27→17:05)
[2024-10-04] MEDS: 0.9 % SODIUM CHLORIDE 1000ML 1,000 ML 100 ML IV ×2 (05:14→20:52)
[2024-10-04] MEDS: HYDROMORPHONE 2MG/ML SYRINGE 1 MG IV (05:14)
--- NOTE | 2024-10-04 06:43 | PC.NURSE ---
Pt A&OX4 and has tolerated room air. Lung sounds clear and bowel sounds active. Pt has complained of abdominal pain multiple times this shift and was medicated per MAR. He has also complained of nausea once and was medicated with zofran. He has ambulated to the bathroom independently. Family member has remained at bedside. Resting in bed with call light within reach
[2024-10-04 07:09] LABS: Albumin Level 4.2 g/dl (3.5-5.0); Chloride 100 mmol/L (98-107)
[2024-10-04 07:10] LABS: Potassium 4.4 mmoL/L (3.5-5.1); Sodium 136 mmol/L (136-145)
[2024-10-04 07:12] LABS: Alanine Aminotransferase 190 U/L (12-78); Alkaline Phosphatase 91 U/L (38-126); Anion Gap 14.4 mEq/L (5-15); Aspartate Amino Transferase 88 U/L (17-59); Bilirubin,Total 2.9 mg/dl (0.2-1.3); Blood Urea Nitrogen 11 mg/dl (9-20); Carbon Dioxide 26 mmol/L (22.0-30.0); Creatinine Clearance Estimated 152 mL/min (50-200); Estimated Glomerular Filt Rate 83 ml/min (>60); GFR (African American) 101 ML/MIN (>60)
[2024-10-04 07:13] LABS: Albumin/Globulin Ratio 1.7 (1.1-1.8); Calcium 8.7 mg/dl (8.4-10.2); Globulin 2.5 g/dL (1.3-3.2); Glucose 79 mg/dl (74-100); Lipase 53 U/L (23-300); Magnesium 1.9 mg/dl (1.6-2.3); Total Protein,Serum 6.7 g/dl (6.3-8.2)
--- NOTE | 2024-10-04 07:20 | P.PNANES_ITS ---
[facility] Anesthesia Record Part II Anesthesia Record Part II Discharge Time: 16:56 Destination: Medical Surgical Department PACU nurse assessment reviewed?: Yes Patient Condition:: Good Anesthesia Complications:: None Swallowing reflex intact?: Yes Airway Patency: Patent Cyanosis?: No Blood Pressure: 115/56 SaO2: 96 Respiratory Rate: 14 Pulse Rate: 75 Temperature: 96.9 F Mental Status: Alert & Oriented Pain level:: 0 Nausea and/or vomitting:: None Intake, IV Amount: 800 Hydration: Adequate
[2024-10-04 07:50] LABS: Basophils % 0.1 % (0.1-2.0); Eosinophils % 0.1 % (0.1-12.0); Hematocrit 41.5 % (42.0-52.0); Hemoglobin 14.5 g/dL (14.1-18.0); Lymphocytes # 0.7 K/mm3 (0.7-4.5); Lymphocytes % 8.5 % (10-50); Mean Corpuscular HGB Conc 34.9 g/dL (31.8-35.4); Mean Corpuscular Hemoglobin 30.6 pg (27.0-31.2); Mean Corpuscular Volume 87.6 fl (80-94); Mean Platelet Volume 10.6 fl (7.4-10.4); Monocytes # 0.5 K/mm3 (0.1-1.0); Monocytes % 5.8 % (1.7-9.3); Neutrophils # 7.2 K/mm3 (1.8-7.8); Neutrophils % 85.1 % (37.0-80.0); Platelet Count 197 K/mm3 (142-424); Red Blood Count 4.74 M/mm3 (4.60-6.20); Red Cell Distribution Width 12.1 % (11.5-17.5); White Blood Count 8.5 K/mm3 (4.8-10.8)
--- NOTE | 2024-10-04 08:43 | P.PN_ITS ---
Subjective Patient reports: still having pain Narrative: Increased right upper quadrant pain with radiation to the back Exam Data for Last 24 hours Vital signs and Labs for Last 24 Hours: Temp Pulse Resp BP Pulse Ox O2 Del Method 98.3 F 94 H 14 132/60 96 Room Air 10/04/24 04:00 10/04/24 04:00 10/04/24 07:22 10/04/24 04:00 10/04/24 04:00 10/04/24 08:00 Laboratory Results - last 24 hr 10/04/24 06:40: WBC 8.5 D, RBC 4.74, Hgb 14.5, Hct 41.5 L, MCV 87.6, MCH 30.6, MCHC 34.9, RDW 12.1, Plt Count 197, MPV 10.6 H, Neut % (Auto) 85.1 H, Lymph % (Auto) 8.5 L, [place] % (Auto) 5.8, Eos % (Auto) 0.1, Baso % (Auto) 0.1, Neut # (Auto) 7.2, Lymph # (Auto) 0.7, [place] # (Auto) 0.5, Eos # (Auto) 0.0, Baso # (Auto) 0.0, Sodium 136, Potassium 4.4, Chloride 100, Carbon Dioxide 26, Anion Gap 14.4, BUN 11 D, Creatinine 1.00, Estimated Creat Clear 152, Estimated GFR 83, Est GFR ( Amer) 101, Glucose 79, Calcium 8.7, Magnesium 1.9, Total Bilirubin 2.9 H, AST 88 H D, ALT 190 H, Alkaline Phosphatase 91, Total Protein 6.7, Albumin 4.2, Globulin 2.5, Albumin/Globulin Ratio 1.7, Lipase 53 I & O for Last 24 hours: Intake & Output 10/01/24 10/02/24 10/03/24 10/04/24 11:59 11:59 11:59 11:59 Intake Total 1650 / 1650 Output Total 500 / 500 1300 / 1300 Balance -500 / -500 350 / 350 Weight 236 lb 12.8 oz 238 lb 4.8 oz Microbiology Reports for the Last 24 Hours: Microbiology 10/02/24 21:25 Blood Blood Culture - Preliminary NO GROWTH AFTER 24 HOURS 10/02/24 21:20 Blood Blood Culture - Preliminary NO GROWTH AFTER 24 HOURS Constitutional Constitutional: no acute distress *Routine Respiratory Exam Respiratory: Absent respiratory distress *Routine Cardiovascular Exam Cardiovascular: Absent tachycardia *Routine Abdominal Exam Abdominal: Present soft and tenderness Progress Note: A&P Assessment and plan (1) Cholelithiasis: Status: Acute Assessment and plan: Persistent/intermittent symptomatology with increased pain this morning. No radiographic or laboratory evidence of acute cholecystitis; however, degree of pain precludes discharge with close outpatient follow-up. Plan laparoscopic cholecystectomy later today I have discussed the risks and benefits including, but not limited to: Bleeding Infection Damage to surrounding tissue Inherent risks of sedation The patient agrees to proceed. (2) Right upper quadrant abdominal pain: Status: Acute (3) Choledocholithiasis: Status: Acute Assessment and plan: Stable status post ERCP (4) Elevated bilirubin: Status: Acute Assessment and plan: Improving status post ERCP
[2024-10-04] MEDS: MAGNESIUM SULFATE IN WATER 2 GM/50 ML PIGGYBACK IV (10:03)
--- NOTE | 2024-10-04 12:27 | P.PN_ITS ---
Subjective *Date: 10/04/24 *Time: 12:27 Interval history: No nausea or vomiting overnight. Continues to have significant abdominal pain. Afebrile. No chest pain or shortness of breath. Pain cramping with intermittent spasm. Response for short period of time to Dilaudid. on room air Medical Exam Vital signs and Labs for Last 24 Hours: Vital Signs Temp Pulse Pulse Resp BP BP BP 10/04/24 08:00 98.4 F 101 H 20 150/84 H 10/04/24 08:00 10/04/24 07:22 14 10/04/24 06:30 10/04/24 05:00 10/04/24 04:00 98.3 F 94 H 17 132/60 10/04/24 03:00 10/04/24 01:00 10/04/24 00:00 98.6 F 73 16 114/78 10/03/24 23:00 10/03/24 21:00 10/03/24 20:00 10/03/24 20:00 97.8 F 77 16 152/82 H 10/03/24 19:45 86 16 147/88 H 10/03/24 19:15 86 18 130/72 10/03/24 18:58 10/03/24 18:45 65 16 123/72 10/03/24 18:15 63 18 130/73 10/03/24 17:45 60 18 133/73 10/03/24 17:30 69 18 131/74 10/03/24 17:15 69 18 136/76 10/03/24 17:00 97.8 F 71 18 118/75 10/03/24 17:00 10/03/24 16:56 75 14 115/56 L 10/03/24 16:46 72 16 112/56 L 10/03/24 16:36 70 16 115/54 L 10/03/24 16:35 96.9 F L 89 18 132/53 L 10/03/24 16:26 96.9 F L 75 14 132/53 L 10/03/24 15:13 10/03/24 13:00 Pulse Ox O2 Del Method 10/04/24 08:00 100 Room Air 10/04/24 08:00 Room Air 10/04/24 07:22 10/04/24 06:30 Room Air 10/04/24 05:00 Room Air 10/04/24 04:00 96 Room Air 10/04/24 03:00 Room Air 10/04/24 01:00 Room Air 10/04/24 00:00 94 L Room Air 10/03/24 23:00 Room Air 10/03/24 21:00 Room Air 10/03/24 20:00 Room Air 10/03/24 20:00 97 Room Air 10/03/24 19:45 Room Air 10/03/24 19:15 99 Room Air 10/03/24 18:58 Room Air 10/03/24 18:45 96 Room Air 10/03/24 18:15 96 Room Air 10/03/24 17:45 98 Room Air 10/03/24 17:30 100 Room Air 10/03/24 17:15 96 Room Air 10/03/24 17:00 97 Room Air 10/03/24 17:00 Room Air 10/03/24 16:56 96 Room Air 10/03/24 16:46 94 L Room Air 10/03/24 16:36 95 Room Air 10/03/24 16:35 10/03/24 16:26 95 Room Air 10/03/24 15:13 Room Air 10/03/24 13:00 Room Air Intake and Output 10/03/24 10/04/24 10/04/24 23:59 07:59 15:59 Intake Total 800 / 850 850 / 850 Output Total 800 / 1800 500 / 500 0 / 500 Balance 0 / -950 350 / 350 0 / 350 Intake: Intake, Total IV Amount 800 / 850 850 / 850 Pipercillin/Tazo 3.375 gm In 0. 50 / 50 9 % Sodium Chloride 50 ml @ 100 mls/hr IV Q8H [facility] Rx#:[id number] Output: Output, Urine Amount 800 / 1800 500 / 500 0 / 500 Other: Number of Voids 0 Weight 108.091 kg Patient Weight 10/04/24 23:59 Weight 108.091 kg Laboratory Results - last 24 hr 10/04/24 06:40: WBC 8.5 D, RBC 4.74, Hgb 14.5, Hct 41.5 L, MCV 87.6, MCH 30.6, MCHC 34.9, RDW 12.1, Plt Count 197, MPV 10.6 H, Neut % (Auto) 85.1 H, Lymph % (Auto) 8.5 L, [place] % (Auto) 5.8, Eos % (Auto) 0.1, Baso % (Auto) 0.1, Neut # (Auto) 7.2, Lymph # (Auto) 0.7, [place] # (Auto) 0.5, Eos # (Auto) 0.0, Baso # (Auto) 0.0, Sodium 136, Potassium 4.4, Chloride 100, Carbon Dioxide 26, Anion Gap 14.4, BUN 11 D, Creatinine 1.00, Estimated Creat Clear 152, Estimated GFR 83, Est GFR ( Amer) 101, Glucose 79, Calcium 8.7, Magnesium 1.9, Total Bilirubin 2.9 H, AST 88 H D, ALT 190 H, Alkaline Phosphatase 91, Total Protein 6.7, Albumin 4.2, Globulin 2.5, Albumin/Globulin Ratio 1.7, Lipase 53 I & O for Labs for Last 24 Hours: Intake & Output 10/01/24 10/02/24 10/03/24 10/04/24 23:59 23:59 23:59 23:59 Intake Total 800 / 850 850 / 850 Output Total 1300 / 1800 500 / 500 Balance -500 / -950 350 / 350 Weight 107.955 kg 107.411 kg 108.091 kg Microbiology Reports for the Last 24 Hours: Microbiology 10/02/24 21:25 Blood Blood Culture - Preliminary NO GROWTH AFTER 24 HOURS 10/02/24 21:20 Blood Blood Culture - Preliminary NO GROWTH AFTER 24 HOURS Constitutional: Present mild distress, obese and cooperative Head: Present atraumatic and normocephalic ENT: Present normal exam Respiratory: Present normal respiratory effort; Absent rhonchi, wheezes or crackles Cardiac: Present Reg Rate and Rhythm GI: Present soft, tenderness (RUQ/positive reed sign) and normal bowel sounds; Absent distention, guarding or rebound Extremities: Present normal inspection and full ROM Skin: Present intact; Absent erythema Neuro: Present Grossly Intact, alert, awake, oriented x 3 and moves all extremities Assessment and Plan *Assessment and plan (1) Cholelithiasis: Status: Acute Qualifiers: Cholelithiasis location: gallbladder and bile duct Cholecystitis presence: without cholecystitis Biliary obstruction: with biliary obstruction Qualified Code(s): K80.71 - Calculus of gallbladder and bile duct without cholecystitis with obstruction Category: Medical Code(s): K80.20 - Calculus of gallbladder without cholecystitis without obstruction (2) Acute cholecystitis: Status: Deleted Category: Medical Code(s): K81.0 - Acute cholecystitis (3) Choledocholithiasis: Status: Acute Category: Medical Code(s): K80.50 - Calculus of bile duct without cholangitis or cholecystitis without obstruction (4) Right upper quadrant abdominal pain: Status: Acute Category: Medical Code(s): R10.11 - Right upper quadrant pain (5) Elevated bilirubin: Status: Acute Category: Medical Code(s): R17 - Unspecified jaundice (6) Acute epigastric pain: Status: Acute Category: Medical Code(s): R10.13 - Epigastric pain (7) Obesity: Status: Acute Category: Medical Code(s): E66.9 - Obesity, unspecified Plan 39-year-old male who presented with abdominal pain. On arrival, the patient was hemodynamically stable but in moderate distress due to pain and nausea, with active retching. His blood pressure was 175/91, heart rate 76 bpm, and oxygen saturation 100% on room air. Exam was significant for right upper quadrant tenderness with guarding. His laboratory workup revealed elevated liver enzymes (AST 255, ALT 220), hyperbilirubinemia (total bilirubin 6.0), and a positive sonographic Reed sign with gallstones on ultrasound, consistent with acute cholecystitis with choledocholithiasis. Given his high risk for clinical decompensation, admission was deemed necessary for further monitoring and definitive management. Taken for ERCP yesterday, continues to have pain. Going for cholecystectomy today. Will monitor overnight as we advance diet and for pain control needs. GI and surgery assisting with care. Problems addressed as follows: Acute Calculous Cholecystitis with Choledocholithiasis versus cholelithiasis Nausea and vomiting - Discussed case with surgery today, going for cholecystectomy today. -Status post ERCP with sphincterotomy yesterday. Has been having cramping pain ever since -Empiric Zosyn every 6 hours -N.p.o. pending cholecystectomy. Will advance diet thereafter -Pain difficult to control with Dilaudid. Monitor for toxicity. Receiving 2 mg every 2-4 hours. - continue antiemetics (Zofran, Phenergan) for symptomatic relief -White count normal at 8, HEENT Leven 14.5. Liver function somewhat better with bilirubin 2.9, AST 88, ALT 190, alk phos 91. Lipase normal at 53. Repeat CBC, CMP, magnesium ordered for the morning. Hypertension (BP 175/91 on arrival) - Likely exacerbated by acute pain and stress response - Will resume amlodipine and valsartan when appropriate. Hypokalemia (Potassium 3.3 on admission) - Potassium improved this morning at 4.4, kidney function normal with BUN 11, creatinine 1.0. Magnesium 1.9 -Replace per electrolyte protocol Obesity complicates all aspects of care Full code N.p.o. pending cholecystectomy, Holding anticoagulation in the setting of procedure
[2024-10-04] MEDS: CEFAZOLIN SODIUM 2 GM in 0.9 % SODIUM CHLORIDE 100 ML IV (12:45)
[2024-10-04] MEDS: LIDOCAINE 1% 20ML MDV 20 ML (13:16)
--- NOTE | 2024-10-04 14:06 | EXP.ANES.CKL ---
[facility] Disclaimer: The information contained in this section may have been updated after the patient was seen, as this information can be updated by other users. Medical History (Updated 10/03/24 @ 15:06 by Abdirahman Langford II, MD) HTN (hypertension) Surgical History H/O gastric sleeve Family History (Updated 10/02/24 @ 23:22 by Yaima Paez RN) Other Family history of cancer Family history of hyperlipidemia Family history of hypertension Family history of myocardial infarction Social History (Updated 10/03/24 @ 14:48 by Cortez Rosario CRNA) Smoking Status: Never smoker alcohol intake: never substance use type: denies use current occupational status: employed Travel in the last 8 weeks: None [facility] Anesthesia Checklist Patient Identification Patient Identification: Verbal (Name & ) Structural Data Admitted From: Inpatient Planned Operative Procedure/s: lap james Consent for Planned Operative Procedure(s) Verified: Yes NPO Status Verified Time NPO: 00:00 Additional verifications Anesthesia Reactions: No Airway Assessment Mallampati Score:: Class II C-Spine Mobility Assessed: Yes TMJ Mobility Assessed: Yes Dentition: Good Dentition Neurological Assessment Level of Consciousness: Awake, Alert and Appropriate Anesthesia Plan Anesthesia Risk discussed: Yes Anesthesia Plan: Verified ASA Class: II Anesthesia Type: General
--- NOTE | 2024-10-04 14:07 | EXP.ANES.I ---
[facility] Anesthesia Record Part I Anesthesia Record I Intake, IV Amount: 2,000 Hydration: Adequate Estimated blood loss (mL): 0 Urine output (mL): 0 Blood Pressure: 142/78 SaO2: 95 Pulse Rate: 90 Airway Patency: Patent Respiratory Rate: 12 Temperature: 98.6 F Patient is:: Awake and Stable Stable to PACU at:: 14:05
--- NOTE | 2024-10-04 14:14 | P.OP_ITS ---
Date of procedure: 10/04/24 Pre-op Diagnosis:: Symptomatic cholelithiasis Post-op Diagnosis:: Acute calculus cholecystitis Procedure performed:: Laparoscopic cholecystectomy Surgeon:: Rohan Huang MD RESIDENTIAL [employer]STRUCTION INSTRUCTOR:: Gagandeep White Anesthesia: GETA Estimated blood loss (mL): 15 Operative findings:: Gallbladder distention Serosal weeping Infundibular thickening Operative note:: After informed consent was obtained, the patient was taken to the operating room and placed in the supine position. General anesthesia was induced and the abdomen was prepped and draped in a sterile fashion. After infiltration with local anesthetic an infraumbilical incision was made. A Veress needle was placed in position. The abdomen was insufflated. A 5 mm optical trocar was placed in position. Under direct visualization, a 12 mm trocar was placed in the subxiphoid position and 2 additional 5 mm trocars were placed in the right upper quadrant. The gallbladder was elevated up and over the liver margin. The tissue around the cystic duct was carefully dissected. 3 clips were placed proximally and the duct was transected with harmonic evangelista. Harmonic evangelista were then utilized to dissect the gallbladder away from the liver margin with careful attention to the control of the cystic artery. The gallbladder was placed in a retrieval bag and removed through the subxiphoid trocar site. The right upper quadrant was thoroughly irrigated. No active bleeding or bile leak was noted. Fascia at the subxiphoid trocar site was reapproximated utilizing 0 Ethibond. The remaining trocars were removed. All wounds were irrigated and skin was closed with 4-0 Monocryl in an interrupted mattress fashion to facilitate hemostasis. The patient's anesthetic agents were reversed and extubation was completed prior to transfer to recovery in stable condition. Condition: stable Disposition: PACU Specimens:: Gallbladder and contents Complications:: No immediate
--- NOTE | 2024-10-04 16:00 | PC.NURSE ---
Pt is currently resting in bed. Pr c/o pain after arriving to floor from surgery. Medicated with dilaudid. Abdomen assessed. 4 incision sites with DSGs noted. Some scant drainage noted. VSS. Call light within reach. Family at bedside.
[2024-10-04] MEDS: PIPERACILLIN/TAZO 4.5 GM in 0.9 % SODIUM CHLORIDE 100 ML IV (17:36)
[2024-10-04] MEDS: PANTOPRAZOLE 40MG VIAL 40 MG IV (20:52)
[2024-10-04] MEDS: POLYETHYLENE GLYCOL 3350 17 GM PACKET PO (20:52)
[2024-10-04] MEDS: OXYCODONE 5MG W/APAP 325MG TABLET 1 EACH PO (20:53)
[2024-10-05] MEDS: OXYCODONE 5MG W/APAP 325MG TABLET 1 EACH PO ×2 (00:33→06:10)
[2024-10-05] MEDS: PIPERACILLIN/TAZO 4.5 GM in 0.9 % SODIUM CHLORIDE 100 ML IV ×2 (00:34→06:10)
[2024-10-05 03:50] VITALS: BP 134/71; PULSE 83; RESP 18; TEMP 36.8; O2SAT 96; BMI 33.8
--- NOTE | 2024-10-05 04:29 | PC.NURSE ---
Pt A&OX4 and has tolerated room air. Lung sounds clear and bowel sounds active. Dressing over lap incisions are c/d/i. He has complained of abdominal pain 2 times but reports pain is much better then previous night. He has tolerated diet with no complaints of N/V. He has ambulated room independently. Family member has remained at bedside. Currently resting in bed with call light within reach.
[2024-10-05 06:50] LABS: Albumin Level 4.1 g/dl (3.5-5.0); Chloride 102 mmol/L (98-107); Sodium 139 mmol/L (136-145)
[2024-10-05 06:53] LABS: Alanine Aminotransferase 176 U/L (12-78); Albumin/Globulin Ratio 1.5 (1.1-1.8); Alkaline Phosphatase 85 U/L (38-126); Aspartate Amino Transferase 85 U/L (17-59); Bilirubin,Total 2.2 mg/dl (0.2-1.3); Blood Urea Nitrogen 9 mg/dl (9-20); Calcium 8.3 mg/dl (8.4-10.2); Carbon Dioxide 29 mmol/L (22.0-30.0); Creatinine Clearance Estimated 171 mL/min (50-200); Estimated Glomerular Filt Rate 94 ml/min (>60); GFR (African American) 114 ML/MIN (>60); Globulin 2.8 g/dL (1.3-3.2); Glucose 89 mg/dl (74-100); Total Protein,Serum 6.9 g/dl (6.3-8.2)
[2024-10-05 07:19] LABS: Basophils % 0.1 % (0.1-2.0); Hematocrit 40.2 % (42.0-52.0); Lymphocytes # 0.7 K/mm3 (0.7-4.5); Lymphocytes % 7.5 % (10-50); Mean Corpuscular HGB Conc 34.8 g/dL (31.8-35.4); Mean Corpuscular Hemoglobin 30.6 pg (27.0-31.2); Mean Platelet Volume 10.2 fl (7.4-10.4); Monocytes # 0.7 K/mm3 (0.1-1.0); Monocytes % 7.3 % (1.7-9.3); Neutrophils # 7.9 K/mm3 (1.8-7.8); Neutrophils % 84.9 % (37.0-80.0); Platelet Count 197 K/mm3 (142-424); Red Blood Count 4.57 M/mm3 (4.60-6.20); Red Cell Distribution Width 12.3 % (11.5-17.5); White Blood Count 9.3 K/mm3 (4.8-10.8)
[2024-10-05 07:29] VITALS: BP 148/74; PULSE 80; RESP 17; TEMP 36.6; O2SAT 99
--- NOTE | 2024-10-05 08:02 | P.DS_ITS ---
General Admission date:: 10/02/24 Discharge date: 10/05/24 HPI HPI HPI: This is a 39-year-old gentleman seen in consultation after presenting to the emergency department with increasing abdominal pain. Evaluation included a bedside ultrasound confirming cholelithiasis. Hyperbilirubinemia also noted. See HPI forwarded from admission H&P/emergency department evaluation below. Currently, the patient feels much better . He states that his pain is down to a 2 out of 10 . No fevers. Forwarded from admission H&P/emergency department evaluation: The patient is a 39-year-old male with a history of hypertension presenting with epigastric pain that has been ongoing for a while. He was evaluated in the emergency department approximately two weeks ago, but the initial workup was not immediately actionable, and he was discharged with outpatient follow-up. Earlier today, he was seen by his family doctor and was scheduled for an outpatient ultrasound and CT, but the pain worsened significantly. The patient describes the pain as now localized to the right upper quadrant, radiating to his right shoulder blade and between his shoulders, associated with vomiting, and worsened with oral intake. He denies fever, chills, jaundice, itching, dark urine, or other concerning symptoms. His vomiting is non-bloody and non-bilious. On arrival, he was hemodynamically stable, alert, oriented x4, and in no acute d istress other than discomfort from pain and nausea. His initial blood pressure was 175/91, heart rate 76 bpm, and oxygen saturation 100% on room air. On physical exam, he appeared uncomfortable, in mild to moderate distress secondary to pain and nausea, and was actively retching. Abdominal examination revealed significant right upper quadrant tenderness with guarding. EKG showed sinus rhythm at 95 bpm with no acute ischemic changes. He was given Zofran and Dilaudid for symptomatic relief but continued to retch, necessitating additional antiemetic therapy with Phenergan. Bedside [id number] ultrasound revealed a thickened gallbladder wall measuring approximately 3.6 mm, gallstones, and a positive Reed sign, consistent with acute cholecystitis. His laboratory workup was notable for elevated total bilirubin (6.0), AST (255), and ALT (220), consistent with choledocholithiasis. Lipase was negative, ruling out pancreatitis. Urinalysis was unremarkable apart from trace bilirubin. Given these findings, gastroenterology was consulted and agreed to perform an ERCP to address the suspected common bile duct obstruction. Surgery was also consulted and agreed to proceed with cholecystectomy following ERCP. Given the patient?s ongoing significant pain requiring multiple doses of analgesia and his high risk for clinical decompensation, admission was deemed necessary for continued monitoring and definitive management. The patient was started on empiric Zosyn for biliary source infection prophylaxis and MiraLAX for constipation prevention due to opioid administration. He was admitted for further inpatient management, including ERCP and eventual cholecystectomy. Hospital Course Hospital Course Hospital Course: 39-year-old male who presented with abdominal pain. On arrival, the patient was hemodynamically stable but in moderate distress due to pain and nausea, with active retching. His blood pressure was 175/91, heart rate 76 bpm, and oxygen saturation 100% on room air. Exam was significant for right upper quadrant tenderness with guarding. His laboratory workup revealed elevated liver enzymes (AST 255, ALT 220), hyperbilirubinemia (total bilirubin 6.0), and a positive sonographic Reed sign with gallstones on ultrasound, consistent with acute cholecystitis with choledocholithiasis. Given his high risk for clinical decompensation, admission was deemed necessary for further monitoring and definitive management. Taken for ERCP with clearing of sludge and sphincterotomy performed. ERCP performed on 10/03, taken for cholecystectomy on 10/04. Improvement in symptoms. Stable to discharge home. Tolerating p.o. intake and having bowel movements. Problems addressed as follows: Acute Calculous Cholecystitis with Choledocholithiasis versus cholelithiasis Nausea and vomiting -Surgery and GI consulted during admission. Imaging concerning for cholecystitis. Had elevation in bilirubin and liver enzymes consistent with choledocholithiasis. Concern for biliary obstruction/sludge. ERCP performed on 10/03 with sphincterotomy. Had significant pain thereafter. Was taken on 10/04 for cholecystectomy. Treated with antibiotics during admission. No indication for further antibiotics after discharge. Improvement in pain after cholecystectomy. Tolerating p.o. intake and stable to discharge home. Pain meds sent by surgery. No further nausea. White count normalized to 9.3. Follow with surgery in the next 1 to 2 weeks -Liver enzymes improving on day of discharge with bilirubin 2.2, AST 85, ALT 176, alk phos 85. Hypertension (BP 175/91 on arrival) - Likely exacerbated by acute pain and stress response. Improved with resumption of home medications including amlodipine and valsartan. Continue home regimen. Hypokalemia (Potassium 3.3 on admission) - Potassium improved with replacement. Stable on day of discharge of 4.0. Kidney function normal with BUN 9, creatinine 0.9 Exam Data for Last 24 hours Vital signs and Labs for Last 24 Hours: Temp Pulse Resp BP Pulse Ox O2 Del Method 97.9 F 80 17 148/74 H 99 Room Air 10/05/24 07:10/05/24 07:10/05/24 07:10/05/24 07:10/05/24 07:10/05/24 07:33 Laboratory Results - last 24 hr 10/05/24 06:15: WBC 9.3, RBC 4.57 L, Hgb 14.0 L, Hct 40.2 L, MCV 88.0, MCH 30.6, MCHC 34.8, RDW 12.3, Plt Count 197, MPV 10.2, Neut % (Auto) 84.9 H, Lymph % (Auto) 7.5 L, [place] % (Auto) 7.3, Eos % (Auto) 0.0 L, Baso % (Auto) 0.1, Neut # (Auto) 7.9 H, Lymph # (Auto) 0.7, [place] # (Auto) 0.7, Eos # (Auto) 0.0, Baso # (Auto) 0.0, Sodium 139, Potassium 4.0, Chloride 102, Carbon Dioxide 29, Anion Gap 12.0, BUN 9, Creatinine 0.90, Estimated Creat Clear 171, Estimated GFR 94, Est GFR ( Amer) 114, Glucose 89, Calcium 8.3 L, Total Bilirubin 2.2 H, AST 85 H, ALT 176 H, Alkaline Phosphatase 85, Total Protein 6.9, Albumin 4.1, Globulin 2.8, Albumin/Globulin Ratio 1.5 I & O for Last 24 hours: Intake & Output 10/02/24 10/03/24 10/04/24 10/05/24 23:59 23:59 23:59 23:59 Intake Total 800 / 850 3350 / 4050 700 / 700 Output Total 1300 / 1800 500 / 500 0 / 0 Balance -500 / -950 2850 / 3550 700 / 700 Weight 107.955 kg 107.411 kg 108.091 kg 109.769 kg Microbiology Reports for the Last 24 Hours: Microbiology 10/02/24 21:20 Blood Blood Culture - Preliminary NO GROWTH AFTER 48 HOURS 10/02/24 21:25 Blood Blood Culture - Preliminary NO GROWTH AFTER 48 HOURS Constitutional Constitutional: no acute distress, obese and cooperative *Routine HEENT Exam Head: Present normocephalic Eye: Present EOMI and PERRL ENT: Present mucous membranes moist *Routine Neck Exam Neck: Present supple; Absent lymphadenopathy *Routine Respiratory Exam Respiratory: Present CTA bilaterally; Absent rhonchi, wheezes or crackles *Routine Cardiovascular Exam Cardiovascular: Present RRR *Routine Abdominal Exam Abdominal: Present soft, normoactive bowel sounds and tenderness (Improved in right upper quadrant, tenderness mainly around surgical incisions); Absent distended *Routine Rectal Exam Patient deferred: visual exam *Routine Exam Patient deferred: penile exam *Routine Extremities Exam Extremities: Absent cyanosis, clubbing or edema *Routine Skin Exam Skin: Present intact and warm; Absent rash *Routine Neurological Exam Neurological: Present alert, oriented X3 and moving all extremities; Absent altered mental status Results Data Completed and Pending Labs on day of discharge: Labs from last 24 hours 10/05/24 06:15 WBC 9.3 RBC 4.57 L Hgb 14.0 L Hct 40.2 L MCV 88.0 MCH 30.6 MCHC 34.8 RDW 12.3 Plt Count 197 MPV 10.2 Neut % (Auto) 84.9 H Lymph % (Auto) 7.5 L [place] % (Auto) 7.3 Eos % (Auto) 0.0 L Baso % (Auto) 0.1 Neut # (Auto) 7.9 H Lymph # (Auto) 0.7 [place] # (Auto) 0.7 Eos # (Auto) 0.0 Baso # (Auto) 0.0 Sodium 139 Potassium 4.0 Chloride 102 Carbon Dioxide 29 Anion Gap 12.0 BUN 9 Creatinine 0.90 Estimated Creat Clear 171 Estimated GFR 94 Est GFR ( Amer) 114 Glucose 89 Calcium 8.3 L Total Bilirubin 2.2 H AST 85 H ALT 176 H Alkaline Phosphatase 85 Total Protein 6.9 Albumin 4.1 Globulin 2.8 Albumin/Globulin Ratio 1.5 Preliminary micro results at discharge 10/02/24 21:20 Blood Culture - Preliminary Blood NO GROWTH AFTER 48 HOURS 10/02/24 21:25 Blood Culture - Preliminary Blood NO GROWTH AFTER 48 HOURS DS: Diagnosis Discharge Diagnosis (1) Cholelithiasis: Status: Deleted Code(s): K80.20 - Calculus of gallbladder without cholecystitis without obstruction Qualifiers: Biliary obstruction: with biliary obstruction Cholecystitis presence: without cholecystitis Cholelithiasis location: gallbladder and bile duct Qualified Code(s): K80.71 - Calculus of gallbladder and bile duct without cholecystitis with obstruction (2) Acute cholecystitis: Status: Deleted Code(s): K81.0 - Acute cholecystitis (3) Choledocholithiasis: Status: Acute Code(s): K80.50 - Calculus of bile duct without cholangitis or cholecystitis without obstruction (4) Right upper quadrant abdominal pain: Status: Deleted Code(s): R10.11 - Right upper quadrant pain (5) Elevated bilirubin: Status: Acute Code(s): R17 - Unspecified jaundice (6) Acute epigastric pain: Status: Acute Code(s): R10.13 - Epigastric pain (7) Obesity: Status: Acute Code(s): E66.9 - Obesity, unspecified Meds Home Medications and Allergies Home Medications ?Medication ?Instructions ?Recorded ?Confirmed ?Type amlodipine 10 mg tablet 10 mg PO DAILY 09/18/24 10/03/24 History valsartan 320 mg tablet 320 mg PO DAILY 09/18/24 10/03/24 History hydrocodone 5 mg-acetaminophen 325 1 tab PO Q6H PRN post-op pain #13 10/05/24 Rx mg tablet tabs New Prescriptions to Start Prescriptions: hydrocodone-acetaminophen Rohan Huang Allergies Allergy/AdvReac Type Severity Reaction Status Date / Time No Known Allergies Allergy Verified 02/28/21 09:40 Discharge Plan Disposition Patient Disposition: Home, Self-Care Condition: Fair Discharge Order Discharge Orders: Discharge Order (Routine); Ordered 10/05/24 Ordered By: Tony Mina Follow up Plan Follow up with: Jerardo Conrad [Primary Care Provider] - 10/11/24 2:15 pm Rohan Huang MD [Staff Physician] - 10/16/24 9:15 am Prescriptions/Medication Reconciliation: New hydrocodone-acetaminophen 5-325 mg tablet 1 tab PO Q6H PRN (Reason: post-op pain) Qty: 13 0RF Continued amlodipine 10 mg tablet 10 mg PO DAILY valsartan 320 mg tablet 320 mg PO DAILY Problem Reconciliation Problems Reviewed?: Yes Patient Discharge Instructions ACTIVITY: Ambulate as tolerated and No heavy lifting DIET: advance to your usual diet Additional Instructions: Remove dressings and shower after 48 hours Patient Instructions: DI for Surgical Site Infection, DI for Cholecystitis, DI for Laparoscopic Cholecystectomy Print Language: Surinamese Providers Primary Care Provider: Jerardo Conrad Admit Provider: Tony Mina Attending Provider: Tony Mina
[2024-10-05] MEDS: POLYETHYLENE GLYCOL 3350 17 GM PACKET PO (09:00)
[2024-10-05] MEDS: KETOROLAC 30MG/ML VIAL 15 MG IV (09:05)
--- NOTE | 2024-10-05 09:08 | P.PN_ITS ---
Subjective Patient reports: feels better Exam Data for Last 24 hours Vital signs and Labs for Last 24 Hours: Temp Pulse Resp BP Pulse Ox O2 Del Method 97.9 F 80 17 148/74 H 99 Room Air 10/05/24 07:29 10/05/24 07:29 10/05/24 07:29 10/05/24 07:29 10/05/24 07:29 10/05/24 07:33 Laboratory Results - last 24 hr 10/05/24 06:15: WBC 9.3, RBC 4.57 L, Hgb 14.0 L, Hct 40.2 L, MCV 88.0, MCH 30.6, MCHC 34.8, RDW 12.3, Plt Count 197, MPV 10.2, Neut % (Auto) 84.9 H, Lymph % (Auto) 7.5 L, Bullitt % (Auto) 7.3, Eos % (Auto) 0.0 L, Baso % (Auto) 0.1, Neut # (Auto) 7.9 H, Lymph # (Auto) 0.7, Bullitt # (Auto) 0.7, Eos # (Auto) 0.0, Baso # (Auto) 0.0, Sodium 139, Potassium 4.0, Chloride 102, Carbon Dioxide 29, Anion Gap 12.0, BUN 9, Creatinine 0.90, Estimated Creat Clear 171, Estimated GFR 94, Est GFR ( Amer) 114, Glucose 89, Calcium 8.3 L, Total Bilirubin 2.2 H, AST 85 H, ALT 176 H, Alkaline Phosphatase 85, Total Protein 6.9, Albumin 4.1, Globulin 2.8, Albumin/Globulin Ratio 1.5 I & O for Last 24 hours: Intake & Output 10/02/24 10/03/24 10/04/24 10/05/24 11:59 11:59 11:59 11:59 Intake Total 1650 / 1650 3740 / 3740 Output Total 500 / 500 1300 / 1300 0 / 0 Balance -500 / -500 350 / 350 3740 / 3740 Weight 236 lb 12.8 oz 238 lb 4.8 oz 242 lb Microbiology Reports for the Last 24 Hours: Microbiology 10/02/24 21:20 Blood Blood Culture - Preliminary NO GROWTH AFTER 48 HOURS 10/02/24 21:25 Blood Blood Culture - Preliminary NO GROWTH AFTER 48 HOURS Constitutional Constitutional: no acute distress *Routine Respiratory Exam Respiratory: Absent respiratory distress *Routine Cardiovascular Exam Cardiovascular: Absent tachycardia *Routine Abdominal Exam Abdominal: Present soft Comments: Dressings intact. No erythema. Progress Note: A&P Assessment and plan (1) Acute cholecystitis due to biliary calculus: Status: Acute Assessment and plan: Overall, doing well status post ERCP and laparoscopic cholecystectomy. Okay from surgical standpoint for discharge home with close outpatient follow-up (2) Choledocholithiasis: Status: Acute (3) Elevated bilirubin: Status: Acute
--- NOTE | 2024-10-07 07:27 | P.PNANES_ITS ---
[facility] Anesthesia Record Part II Anesthesia Record Part II Discharge Time: 14:35 Destination: Medical Surgical Department PACU nurse assessment reviewed?: Yes Patient Condition:: Good Anesthesia Complications:: None Swallowing reflex intact?: Yes Airway Patency: Patent Cyanosis?: No Blood Pressure: 144/77 SaO2: 96 Respiratory Rate: 18 Pulse Rate: 95 Temperature: 98.6 F Mental Status: Alert & Oriented Pain level:: 0 Nausea and/or vomitting:: None Intake, IV Amount: 0 Hydration: Adequate
[2024-10-07 07:28] VITALS: BP 144/77; PULSE 95; RESP 18; TEMP 37; O2SAT 96
--- NOTE | 2024-10-07 10:20 | SW/DCPLANNER ---
Spoke with patient on the phone. Patient stated that things are going. Patient stated that he is still in alot of pain. Patient stated that he is aware of his upcoming appointments. Patient stated that he was able to get his medicine picked up. Patient stated that he has no concerns or questions at this time. Omari Mchugh
== END 2024-10-05 10:25 | disposition home or self-care (01) | DRG 419 ==
LOC: ER 21:02 → 2ND 22:09
PROVIDERS: Internal Medicine Gastroenterology; Nurse Practitioner Family; Surgery; Admitting Provider Internal Medicine Adolescent Medicine; Emergency Provider Emergency Medicine; PCP Internal Medicine; Visit Provider Internal Medicine Adolescent Medicine
PROC: 0FC98ZZ Extirpation of Matter from Common Bile Duct, Via Natural or Artificial Opening Endoscopic (ICD-10-PCS; CPT 43260; principal; 2024-10-03 14:30)
PROC: 0FT44ZZ Resection of Gallbladder, Percutaneous Endoscopic Approach (ICD-10-PCS; CPT 47562; principal; 2024-10-04 11:45)
DX: K80.00 Calculus of gallbladder with acute cholecystitis without obstruction (principal); I10 Essential (primary) hypertension; E87.6 Hypokalemia; Z98.84 Bariatric surgery status; Z80.9 Family history of malignant neoplasm, unspecified; Z82.49 Family history of ischemic heart disease and other diseases of the circulatory system; Z83.438 Family history of other disorder of lipoprotein metabolism and other lipidemia; Z79.899 Other long term (current) drug therapy; E66.9 Obesity, unspecified; Z68.33 Body mass index [BMI] 33.0-33.9, adult
CPT/HCPCS: 36415; 74330; 76000; 80053; 80061; 81001; 83605; 83690; 83735; 84484; 85025; 85610; 85730; 86140; 87040; 93005; 96374; 99221; 99285; J3490; C1769; C1889; J0690; J1100; J1171; J1611; J1885; J2250; J2405; J2543; J2550; J3010; J3475; J7030; J7120

== ENCOUNTER 2024-10-09 10:38 | Outpatient (CLI) | payer BC, SELFPAY ==
[2024-10-09 10:50] VITALS: BP 129/86; PULSE 92; RESP 18; TEMP 36.7; O2SAT 100; BMI 30.9
[2024-10-09] MEDS: KETOROLAC 30MG/ML VIAL 15 MG IM (10:55)
[2024-10-09 11:10] VITALS: BP 128/70; PULSE 90; RESP 18; TEMP 36.7; O2SAT 100
== END 2024-10-09 11:10 | disposition home or self-care (01) ==
LOC: INF 10:39
PROVIDERS: PCP Internal Medicine; Visit Provider Surgery
DX: G89.18 Other acute postprocedural pain (principal)
CPT/HCPCS: 96372; J1885

== ENCOUNTER 2025-02-25 07:33 | Outpatient (CLI) | payer BC, SELFPAY ==
--- NOTE | 2025-02-25 | CA_ITS ---
APPROVED REPORT EXAM: Comprehensive 2D, Doppler, and color-flow Echocardiogram Business Affairs Manager: Cindy Thurman RT(R) Ht: 5 ft 11 in Wt: 245lbs BSA: 2.30 BP: 136/80 mmHg Indications: family history of heart disease 2D Dimensions LA Volume 49.00 mL LA Volume Index 21.30 mL/m2 (M/F) 16-34 EF AP4 51.90 % GL Strain -13.8 % M-Mode Dimensions RVDd 2.83 cm (0.9-2.6) LA Diam 3.62 cm (1.9-4.0) LVDd 5.94 cm (3.5-5.7) LVDs 3.90 cm (3.5-5.7) IVSd 0.75 cm (0.6-1.1) PWd 0.90 cm (0.6-1.1) EF (Teich) 62.50% FS 34.30% EDV (Teich) 175.90 mL ESV (Teich) 65.90 mL LV Diastology E Decel Time 193 (160-240 msec) E/A Ratio 1.1 Mitral Valve MV E Max Viraj. 101.0 (40-130 cm/s) MV A Velocity 89.0 (40-130 cm/s) E/A Ratio 1.13 MV PHT 57.0 ms Left Ventricle The left ventricle is normal size. The left ventricular systolic function is normal. The left ventricular ejection fraction is within the normal range. There is normal left ventricular wall thickness. There is normal LV segmental wall motion. The left ventricular diastolic function is normal. LVEF is 55%. Right Ventricle The right ventricle is normal size. The right ventricular systolic function is normal. Atria The left atrium size is normal. The right atrium size is normal. There is no Doppler evidence of interatrial shunt. Aortic Valve The aortic valve opens well. There is no aortic valvular stenosis. No aortic regurgitation is present. Mitral Valve Mitral valve is normal in structure. No evidence of mitral valve stenosis. There is no mitral valve regurgitation noted. Tricuspid Valve Tricuspid valve is grossly normal in structure and function. Mild tricuspid regurgitation. RVSP 20-25 mmHg. Pulmonic Valve The pulmonary valve is normal in structure. Trace pulmonic regurgitation. Great Vessels The aortic root is normal in size. IVC is normal in size and collapses >50% with inspiration. Pericardium There is no pericardial effusion. Other Information Study Quality: Adequate Conclusion Normal biventricular systolic function. Mild TR. Electronically signed by : Amelie Mittal MD 02/28/2025 01:38:16
--- NOTE | 2025-02-25 | CA_ITS ---
APPROVED REPORT Exam: Pharmacologic Technologist: Liliane Gonzalez Ht: 5 ft 10 in Wt: 222 lbs BSA: 2.18 m2 HR: 59 bpm BP: 138/84 mmHg Stress Test Details Test: Lexiscan HR Resting HR: 59 bpm Max Heart Rate (APMHR): 181.460832 bpm Max HR Achieved: 98 bpm Target HR (85% APMHR): 153.283169 bpm % of APMHR: 54.14 Recovery HR: 73 bpm BP Resting BP: 138.0/84.0 mmHg Max BP: 155.0/82.0 mmHg Recovery BP: 144.0/81.0 mmHg ECG Resting ECG: Sinus bradycardia Stress ECG Conclusion Symptoms: Dyspnea, chest pressure Arrhythmias/Ectopy: - ST-T Changes: Less than [address] depression. Baseline abnormalities. Conclusion: Unremarkable due to Lexiscan infusion. Electronically signed by : Amelie Mittal MD 02/25/2025 13:05:36
--- NOTE | 2025-02-25 07:35 | XR_ITS ---
FINAL REPORT CLINICAL HISTORY: generalized edema COMPARISON: None FINDINGS: PA and lateral views of the chest were obtained. No acute pulmonary density is evident. There is no evidence of effusion or other pleural disease. The mediastinum has a normal appearance. The cardiac silhouette is unremarkable. IMPRESSION: Unremarkable chest exam. Reviewed, Interpreted and Dictated by Malik Hickman MD Transcribed by Jalyn Summers Authenticated and [facility]
--- OUTSIDE RECORDS SUMMARY | 2025-02-25 07:35 | XMS_ITS | Data Portability ---
Author Organization [facility] Luther rosales, CKS [place] CLOSED Address [address] [place] [address] Care Team Providers Care Catia Designer Name Role Phone WIL MOSS Primary Care Provider Assessment No assessment recorded. Plan of Treatment Reminders Order Date Submit Date Provider Last Modified By Organization Details Last Modified Time Details Appointments RECHE CK 2024 09:15A M DR MOSS Not available Not available Not available Lab CBC w/ auto diff 2024 025 [facility], [address] [place] [address], [id number], 01/29/2025 19:37:09 CMP, serum or plasm a 2024 025 [facility], [address] [place] [address], [address], 01/29/2025 20:50:02 BNP (B-ty pe natri ureti c pepti de), serum or plasm a 2024 025 [facility], [address] [place] [address], [address], 01/29/2025 20:39:08 urina lysis , compl ete 2024 025 [facility], [address] [place] [address], [address], 01/29/2025 20:30:52 CMP, serum or plasm a 2023 024 [facility], [address] [place] [address], [address], 03/21/2024 20:22:04 CBC w/ auto diff 2023 024 [facility], [address] [place] [address], [id number], 03/21/2024 19:48:32 lipid panel , serum 2023 024 [facility], [address] [place], [address], 03/21/2024 20:22:06 TSH, serum or plasm a 2023 024 [facility], [address] [place] [address], [address], 03/21/2024 19:50:22 Referral None recor ded. Procedures None recor ded. Surgeries None recor ded. Imaging US, doppl er echoc ardio gram, w/ color flow [address] (Scheduling), [address], [place], [place], [address], 02/20/2025 15:41:23 XR, chest , 2 view [address] (Scheduling), [address], [place], [address], 02/24/2025 14:25:20 cardi ac stres s test - MYOVI EW JAVI CAN NUCLE AR STRES S [address] (Scheduling), [address], [place], [address], 02/20/2025 15:41:23 NM, myoca rdial perfu russ scan 2024 025 [email or web address] [facility] (Scheduling), [address], [place], [address], 02/06/2025 14:04:26 US, abdom en, limit ed [email or web address] Scheduling Department -New Scheduling Process, [address], [place], [address], 10/15/2024 14:17:05 NM, hepat obili reginaldo scan, w/ CCK [email or web address] Scheduling Department -New Scheduling Process, [address] [place] [address] [address], [place], [address], 10/15/2024 14:17:05 Medication Orders valsa rtan 320 mg table t 2024 025 [facility], [address] [place], [address], 01/29/2025 10:58:45 amlod ipine 5 mg table t 2024 025 [facility], [address] [place], [address], 01/29/2025 10:58:45 hydro chlor othia zide 12.5 mg table t 2024 025 [facility], [address] [place], [address], 01/29/2025 10:58:49 potas sium chlor jalen ER 10 mEq table t,ext ended relea se 2024 025 [facility], [address] [place], [address], 01/29/2025 10:58:48 Medro l (Michael) 4 mg table ts in a dose pack 2024 025 [facility], [address] [place], [address], 01/29/2025 10:35:52 amoxi cilli n 875 mg table t 2024 025 [facility] [address] [place], [address], 01/29/2025 10:35:37 Hycod an (with homat ropin e) 5 mg-1. 5 mg/5 mL oral solut ion 2024 025 [facility] [address] [place], [address], 01/29/2025 10:35:58 valsa rtan 320 mg table t 2024 025 [facility] [address] [place], [address], 12/02/2024 11:34:31 amlod ipine 10 mg table t 2024 025 [facility] [address] [place], [address], 01/29/2025 10:55:16 Perco cet 10 mg-32 5 mg table t 2024 025 [facility] [address] [place], [address], 10/11/2024 14:31:28 Manuel nix 40 mg table t,del ayed relea se 2024 025 [facility], [address] [place], [address], 10/11/2024 13:54:18 trama dol 50 mg table t 2024 025 [facility], [address] [place], [address], 10/11/2024 13:54:15 cloni dine HCl 0.1 mg table t 2023 025 [facility], [address] [place], [address], 10/02/2024 09:46:19 escit alopr am 10 mg table t 2023 025 [facility], [address] [place], [address], 10/02/2024 09:46:23 hydro xyzin e HCl 25 mg table t 2023 025 [facility], [address] [place], [address], 10/02/2024 09:46:25 Patient TargetsNo targets recorded. Patient Instructions Encounter Date Encounter Id Patient Instructions Last Modified By Organization Details Last Modified Time 01/29/2025 [id number] Heart Station Patient Instructions [email or web address] Not available 01/29/2025 11:01:50 Reason for Referral None Reported. Results Created Date Observation Date Name Description Value Unit Range Abnormal Flag Note LastModifiedBy Organization Detail LastModifiedTime 03/21/20 24 03/21/2024 COMPL ETE BLOOD COUNT white blood cells 8.8 10*3/ uL 3.8-10 .8 normal Not Available [facility] [address] [place] [address], [address], 03/21/2024 19:48:32 03/21/20 24 03/21/2024 COMPL ETE BLOOD COUNT red blood cells 5.30 10*6/ uL 4.20-5 .80 normal Not Available [facility] [address] [place], [address], 03/21/2024 19:48:32 03/21/20 24 03/21/2024 COMPL ETE BLOOD COUNT hemoglobin 16.5 g/dL 14.0-1 8.0 normal Not Available [facility] [address] [place], [address], 03/21/2024 19:48:32 08/08/20 24 03/21/2024 COMPL ETE BLOOD COUNT hematocrit 46.7 % 40.0-5 2.0 normal Not Available [facility] [address] [place] [address], [address], 03/21/2024 19:48:32 03/21/20 24 03/21/2024 COMPL ETE BLOOD COUNT MCV 88 fL 80-100 normal Not Available [facility] [address] [place] [address], [address], 03/21/2024 19:48:32 03/21/20 24 03/21/2024 COMPL ETE BLOOD COUNT MCH 31 pg 26-35 normal Not Available [facility] [address] [place] [address], [address], 03/21/2024 19:48:32 03/21/20 24 03/21/2024 COMPL ETE BLOOD COUNT MCHC 35 g/dL 32-36 normal Not Available [facility] [address] [place] [address], [address], 03/21/2024 19:48:32 03/21/20 24 03/21/2024 COMPL ETE BLOOD COUNT RDW 13.0 % 11.0-1 5.0 normal Not Available [facility] [address] [place] [address], [address], 03/21/2024 19:48:32 03/21/20 24 03/21/2024 COMPL ETE BLOOD COUNT MPV 9.0 fL 6.2-10 .5 normal Not Available [facility] [address] [place] [address], [address], 03/21/2024 19:48:32 03/21/20 24 03/21/2024 COMPL ETE BLOOD COUNT platelet count 212 10*3/ uL 150-40 0 normal Not Available [facility] [address] [place] [address], [address], 03/21/2024 19:48:32 03/21/20 24 03/21/2024 COMPL ETE BLOOD COUNT neutrophil,a bsolute 6.5 10*3/ uL 1.6-8. 4 normal Not Available [facility] [address] [place] [address], [address], 03/21/2024 19:48:32 03/21/20 24 03/21/2024 COMPL ETE BLOOD COUNT lymphocyte,a bsolute 1.4 10*3/ uL 0.4-5. 1 normal Not Available [facility] [address] [place] [address], [address], 03/21/2024 19:48:32 03/21/20 24 03/21/2024 COMPL ETE BLOOD COUNT monocyte,abs olute 0.7 10*3/ uL 0.0-1. 2 normal Not Available [facility] [address] [place] [address], [address], 03/21/2024 19:48:32 03/21/20 24 03/21/2024 COMPL ETE BLOOD COUNT eosinophil,a bsolute 0.2 10*3/ uL 0.0-0. 8 normal Not Available [facility] [address] [place] [address], [address], 03/21/2024 19:48:32 03/21/20 24 03/21/2024 COMPL ETE BLOOD COUNT basophil,abs olute 0.1 10*3/ uL 0.0-0. 3 normal Not Available [facility] [address] [place] [address], [address], 03/21/2024 19:48:32 03/21/20 24 03/21/2024 COMPL ETE BLOOD COUNT % neutrophils 73.8 % 42.0-7 8.0 normal Not Available [facility] [address] [place] [address], [address], 03/21/2024 19:48:32 03/21/20 24 03/21/2024 COMPL ETE BLOOD COUNT % lymphocytes 15.6 % 11.0-4 7.0 normal Not Available [facility] [address] [place] [address], [address], 03/21/2024 19:48:32 03/21/20 24 03/21/2024 COMPL ETE BLOOD COUNT % monocytes 8.1 % 0.0-11 .0 normal Not Available [facility] [address] [place] [address], [address], 03/21/2024 19:48:32 03/21/20 24 03/21/2024 COMPL ETE BLOOD COUNT % eosinophils 1.9 % 0.0-7. 0 normal Not Available [facility] [address] [place] [address], [address], 03/21/2024 19:48:32 03/21/20 24 03/21/2024 COMPL ETE BLOOD COUNT % basophils 0.6 % 0.0-3. 0 normal Not Available [facility] [address] [place] [address], [address], 03/21/2024 19:48:32 03/21/20 24 03/21/2024 COMPL ETE BLOOD COUNT nucleated red cells 0.0 % 0.0-0. 9 normal Not Available [facility] [address] [place] [address], [address], 03/21/2024 19:48:32 03/21/20 24 03/21/2024 COMPL ETE BLOOD COUNT nucleated RBCs, absolute 0.00 10*3/ uL not estab. normal Not Available [facility] [address] [place] [address], [address], 03/21/2024 19:48:32 03/21/20 24 03/21/2024 TSH TSH 1.050 u[IU] /mL 0.270- 4.200 normal Not Available [facility] [address] [place] [address], [address], 03/21/2024 19:50:22 03/21/2003/21/2024 COMP. METAB OLIC PANEL glucose 88 mg/dL 74-100 normal Not Available [facility] [address] [place] [address], [address], 03/21/2024 20:22:04 03/21/20 24 03/21/2024 COMP. METAB OLIC PANEL blood urea nitrogen 7 mg/dL 6-20 normal Not Available [facility] [address] [place] [address], [address], 03/21/2024 20:22:04 03/21/20 24 03/21/2024 COMP. METAB OLIC PANEL creatinine 0.97 mg/dL 0.70-1 .28 normal Not Available [facility] [address] [place] [address], [address], 03/21/2024 20:22:04 03/21/20 24 03/21/2024 COMP. METAB OLIC PANEL BUN/creatini ne ratio 7 (calc ) 10-20 low Not Available [facility] [address] [place] [address], [address], 03/21/2024 20:22:04 03/21/20 24 03/21/2024 COMP. METAB OLIC PANEL sodium 140 mmol/ L 136-14 5 normal Not Available [facility] [address] [place] [address], [address], 03/21/2024 20:22:04 03/21/20 24 03/21/2024 COMP. METAB OLIC PANEL potassium 3.9 mmol/ L 3.4-5. 0 normal Not Available [facility] [address] [place] [address], [address], 03/21/2024 20:22:04 03/21/20 24 03/21/2024 COMP. METAB OLIC PANEL chloride 102 mmol/ L 98-107 normal Not Available [facility] [address] [place] [address], [address], 03/21/2024 20:22:04 03/21/20 24 03/21/2024 COMP. METAB OLIC PANEL carbon dioxide 26 mmol/ L 22-31 normal Not Available [facility] [address] [place] [address], [address], 03/21/2024 20:22:04 03/21/20 24 03/21/2024 COMP. METAB OLIC PANEL anion gap 12 (calc ) 7-25 normal Not Available [facility] [address] [place] [address], [address], 03/21/2024 20:22:04 03/21/20 24 03/21/2024 COMP. METAB OLIC PANEL calcium 9.5 mg/dL 8.6-10 .2 normal Not Available [facility] [address] [place] [address], [address], 03/21/2024 20:22:04 03/21/20 24 03/21/2024 COMP. METAB OLIC PANEL total protein 7.8 g/dL 6.4-8. 3 normal Not Available [facility] [address] [place] [address], [address], 03/21/2024 20:22:04 03/21/20 24 03/21/2024 COMP. METAB OLIC PANEL albumin 4.3 g/dL 3.5-5. 2 normal Not Available [facility] [address] [place] [address], [address], 03/21/2024 20:22:04 03/21/20 24 03/21/2024 COMP. METAB OLIC PANEL globulin 3.5 1.5-4. 5 normal Not Available [facility] [address] [place] [address], [address], 03/21/2024 20:22:04 03/21/20 24 03/21/2024 COMP. METAB OLIC PANEL albumin/glob ulin ratio 1.2 (calc ) 1.1-2. 5 normal Not Available [facility] [address] [place] [address], [address], 03/21/2024 20:22:04 03/21/20 24 03/21/2024 COMP. METAB OLIC PANEL bilirubin, total 1.4 mg/dL 0.1-1. 2 high Pleas e call the Lab withi n 24 hrs at 258-4 150 if fract ionat ed Bilir ubin is bernardo ed. Not Available [facility] [address] [place] [address], [address], 03/21/2024 20:22:04 03/21/20 24 03/21/2024 COMP. METAB OLIC PANEL alkaline phosphatase 78 U/L 40-129 normal Not Available [facility] [address] [place], [address], 03/21/2024 20:22:04 03/21/20 24 03/21/2024 COMP. METAB OLIC PANEL AST 16 U/L 0-40 normal Not Available [facility] [address] [place] [address], [address], 03/21/2024 20:22:04 03/21/20 24 03/21/2024 COMP. METAB OLIC PANEL ALT 16 U/L 0-41 normal Not Available [facility] [address] [place], [address], 03/21/2024 20:22:04 03/21/20 24 03/21/2024 COMP. METAB OLIC PANEL GFR 102 >= 60 normal NOT E New calcu latio n for GFR (CKD- EPI 2020) is formu lated witho ut race adjus tment facto rs at the recom menda tion of the [employer] and Ameri can Socie ty of Nephr ology . This calcu latio n has not been valid ated in pregn ant women . For pedia tric patie nts refer to https ://george quevedo.o rg/pr ofess ional s/KDO QI/gf r_cal culat orPed Not Available [facility] [address] [place] [address], [address], 03/21/2024 20:22:04 03/21/20 24 03/21/2024 LIPID PROFI LE HDL cholesterol 40 mg/dL 40-242 normal Not Available [facility] [address] [place] [address], [address], 03/21/2024 20:22:06 03/21/20 24 03/21/2024 LIPID PROFI LE triglyceride s 172 mg/dL 0-149 high TRIGL YCERI DE RANGE S ENEDELIA L: < 150 BORDE RLINE HIGH: 150 - 199 HIGH: 200 - 499 VERY HIGH: > OR = 500 Not Available [facility] [address] [place] [address], [address], 03/21/2024 20:22:06 03/21/20 24 03/21/2024 LIPID PROFI LE cholesterol 169 mg/dL 0-199 normal DONOVAN STERO L (TOTA L) RANGE S BERNARDO ABLE: < 200 BORDE RLINE : 200 - 239 HIGHE R RISK: > 239 Not Available [facility] [address] [place] [address], [address], 03/21/2024 20:22:06 03/21/20 24 03/21/2024 LIPID PROFI LE LDL cholesterol 95 mg/dL _(raven c) 0-99 normal LDL DONOVAN STERO L RANGE S OPTIM AL: < 100 NEAR/ ABOVE OPTIM AL: 100 - 129 BORDE RLINE HIGH: 130 - 159 HIGH: 160 - 189 VERY HIGH: > OR = 190 Not Available [facility] [address] [place] [address], [address], 03/21/2024 20:22:06 01/30/20 25 01/29/2025 COMPL ETE BLOOD COUNT white blood cells 6.6 10*3/ uL 3.8-10 .8 normal Not Available [facility] [address] [place] [address], [address], 01/29/2025 19:37:09 01/30/20 25 01/29/2025 COMPL ETE BLOOD COUNT red blood cells 4.98 10*6/ uL 4.20-5 .80 normal Not Available [facility] [address] [place] [address], [address], 01/29/2025 19:37:09 01/30/20 25 01/29/2025 COMPL ETE BLOOD COUNT hemoglobin 15.1 g/dL 14.0-1 8.0 normal Not Available [facility] [address] [place] [address], [address], 01/29/2025 19:37:09 01/30/20 25 01/29/2025 COMPL ETE BLOOD COUNT hematocrit 44.9 % 40.0-5 2.0 normal Not Available [facility] [address] [place] [address], [address], 01/29/2025 19:37:09 01/30/20 25 01/29/2025 COMPL ETE BLOOD COUNT MCV 90 fL 80-100 normal Not Available [facility] [address] [place] [address], [address], 01/29/2025 19:37:01/30/20 25 01/29/2025 COMPL ETE BLOOD COUNT MCH 30 pg 26-35 normal Not Available [facility] [address] [place] [address], [address], 01/29/2025 19:37:01/30/20 25 01/29/2025 COMPL ETE BLOOD COUNT MCHC 34 g/dL 32-36 normal Not Available [facility] [address] [place] [address], [address], 01/29/2025 19:37:01/30/20 25 01/29/2025 COMPL ETE BLOOD COUNT RDW 13.4 % 11.0-1 5.0 normal Not Available [facility] [address] [place] [address], [address], 01/29/2025 19:37:09 01/30/20 25 01/29/2025 COMPL ETE BLOOD COUNT MPV 8.8 fL 6.2-10 .5 normal Not Available [facility] [address] [place] [address], [address], 01/29/2025 19:37:01/30/2001/29/2025 COMPL ETE BLOOD COUNT platelet count 197 10*3/ uL 150-40 0 normal Not Available [facility] [address] [place] [address], [address], 01/29/2025 19:37:01/30/20 25 01/29/2025 COMPL ETE BLOOD COUNT neutrophil,a bsolute 4.3 10*3/ uL 1.6-8. 4 normal Not Available [facility] [address] [place] [address], [address], 01/29/2025 19:37:01/30/20 25 01/29/2025 COMPL ETE BLOOD COUNT lymphocyte,a bsolute 1.5 10*3/ uL 0.4-5. 1 normal Not Available [facility] [address] [place] [address], [address], 01/29/2025 19:37:01/30/20 25 01/29/2025 COMPL ETE BLOOD COUNT monocyte,abs olute 0.6 10*3/ uL 0.0-1. 2 normal Not Available [facility] [address] [place] [address], [address], 01/29/2025 19:37:01/30/2001/29/2025 COMPL ETE BLOOD COUNT eosinophil,a bsolute 0.2 10*3/ uL 0.0-0. 8 normal Not Available [facility] [address] [place] [address], [address], 01/29/2025 19:37:01/30/20 25 01/29/2025 COMPL ETE BLOOD COUNT basophil,abs olute 0.1 10*3/ uL 0.0-0. 3 normal Not Available [facility] [address] [place] [address], [address], 01/29/2025 19:37:01/30/2001/29/2025 COMPL ETE BLOOD COUNT % neutrophils 64.9 % 42.0-7 8.0 normal Not Available [facility] [address] [place] [address], [address], 01/29/2025 19:37:01/30/20 25 01/29/2025 COMPL ETE BLOOD COUNT % lymphocytes 22.2 % 11.0-4 7.0 normal Not Available [facility] [address] [place] [address], [address], 01/29/2025 19:37:01/30/2001/29/2025 COMPL ETE BLOOD COUNT % monocytes 9.4 % 0.0-11 .0 normal Not Available [facility] [address] [place] [address], [address], 01/29/2025 19:37:01/30/20 25 01/29/2025 COMPL ETE BLOOD COUNT % eosinophils 2.5 % 0.0-7. 0 normal Not Available [facility] [address] [place] [address], [address], 01/29/2025 19:37:01/30/2001/29/2025 COMPL ETE BLOOD COUNT % basophils 1.0 % 0.0-3. 0 normal Not Available [facility] [address] [place] [address], [address], 01/29/2025 19:37:01/30/20 25 01/29/2025 COMPL ETE BLOOD COUNT nucleated red cells 0.0 % 0.0-0. 9 normal Not Available [facility] [address] [place] [address], [address], 01/29/2025 19:37:01/30/20 25 01/29/2025 COMPL ETE BLOOD COUNT nucleated RBCs, absolute 0.00 10*3/ uL not estab. normal Not Available [facility] [address] [place] [address], [address], 01/29/2025 19:37:09 01/30/20 25 01/29/2025 URINA LYSIS color Cait abnormal Not Available [facility] [address] [place] [address], [address], 01/29/2025 20:30:52 01/30/20 25 01/29/2025 URINA LYSIS appearance Clear normal Not Available [facility] [address] [place] [address], [address], 01/29/2025 20:30:52 01/30/20 25 01/29/2025 URINA LYSIS glucose Normal mg/dL normal normal Not Available [facility] [address] [place] [address], [address], 01/29/2025 20:30:52 01/30/20 25 01/29/2025 URINA LYSIS bilirubin Negati ve mg/dL negati ve normal Not Available [facility] [address] [place] [address], [address], 01/29/2025 20:30:52 01/30/20 25 01/29/2025 URINA LYSIS ketone Negati ve mg/dL negati ve normal Not Available [facility] [address] [place] [address], [address], 01/29/2025 20:30:52 01/30/20 25 01/29/2025 URINA LYSIS specific gravity 1.018 1.003- 1.035 normal Not Available [facility] [address] [place] [address], [address], 01/29/2025 20:30:52 01/30/20 25 01/29/2025 URINA LYSIS blood 10 /uL negati ve abnormal Not Available [facility] [address] [place] [address], [address], 01/29/2025 20:30:52 01/30/20 25 01/29/2025 URINA LYSIS pH 6.5 5.0 - 8.0 normal Not Available [facility] [address] [place] [address], [address], 01/29/2025 20:30:52 01/30/20 25 01/29/2025 URINA LYSIS protein Negati ve mg/dL negati ve normal Not Available [facility] [address] [place] [address], [address], 01/29/2025 20:30:52 01/30/20 25 01/29/2025 URINA LYSIS urobilinogen Normal mg/dL normal normal Not Available [facility] [address] [place] [address], [address], 01/29/2025 20:30:52 01/30/20 25 01/29/2025 URINA LYSIS nitrite Negati ve negati ve normal Not Available [facility] [address] [place] [address], [address], 01/29/2025 20:30:52 01/30/20 25 01/29/2025 URINA LYSIS leukocyte esterase Negati ve /uL negati ve normal Not Available [facility] [address] [place] [address], [address], 01/29/2025 20:30:52 01/30/20 25 01/29/2025 URINA LYSIS mucus, urine 2+ /lpf not establ ished normal Not Available [facility] [address] [place] [address], [address], 01/29/2025 20:30:52 01/30/20 25 01/29/2025 URINA LYSIS RBC, urine 3-10 0-2/hp f abnormal Not Available [facility] [address] [place] [address], [address], 01/29/2025 20:30:52 01/30/20 25 01/29/2025 URINA LYSIS squamous epi. cells 0-5 0-5/hp f normal Not Available [facility] [address] [place] [address], [address], 01/29/2025 20:30:52 01/30/20 25 01/29/2025 URINA LYSIS bacteria 1+ /hpf none seen abnormal Not Available [facility] [address] [place] [address], [address], 01/29/2025 20:30:52 01/30/20 25 01/29/2025 BNP BNP 6 pg/mL 5-100 normal Blood joann ntrat ions of Brain Natri ureti c Pepti de (BNP) may be eleva carmenza in patie nts who are exper ienci ng a heart attac k, patie nts that are jason dates for renal dialy sis, and patie nts that have had renal dialy sis. The BNP test shoul d not be used as absol qagan [place] evide nce for CHF. Resul ts shoul d be inter prete d along with clini raven findi ngs and other labor atory test resul ts. Not Available [facility] [address] [place] [address], [address], 01/29/2025 20:39:08 01/30/20 25 01/29/2025 COMP. METAB OLIC PANEL glucose 79 mg/dL 74-100 normal Not Available [facility] [address] [place] [address], [phone], 01/29/2025 20:50:02 01/30/20 25 01/29/2025 COMP. METAB OLIC PANEL blood urea nitrogen 8 mg/dL 6-20 normal Not Available [facility] [place], [address], 01/29/2025 20:50:02 01/30/20 25 01/29/2025 COMP. METAB OLIC PANEL creatinine 0.92 mg/dL 0.70-1 .20 normal Not Available [facility] [place], [address], 01/29/2025 20:50:02 01/30/20 25 01/29/2025 COMP. METAB OLIC PANEL BUN/creatini ne ratio 9 (calc ) 10-20 low Not Available [facility] [address] [place] [address], [phone], 01/29/2025 20:50:02 01/30/20 25 01/29/2025 COMP. METAB OLIC PANEL sodium 138 mmol/ L 136-14 5 normal Not Available [facility] [address] [place] [address], [address], 01/29/2025 20:50:02 01/30/20 25 01/29/2025 COMP. METAB OLIC PANEL potassium 4.0 mmol/ L 3.4-5. 0 normal Not Available [facility] [address] [place] [address], [phone], 01/29/2025 20:50:02 01/30/20 25 01/29/2025 COMP. METAB OLIC PANEL chloride 99 mmol/ L 98-107 normal Not Available [facility] [address] [place] [address], [address], 01/29/2025 20:50:02 01/30/20 25 01/29/2025 COMP. METAB OLIC PANEL carbon dioxide 24 mmol/ L 22-31 normal Not Available [facility] [address] [place] [address], [address], 01/29/2025 20:50:02 01/30/20 25 01/29/2025 COMP. METAB OLIC PANEL anion gap 15 (calc ) 7-25 normal Not Available [facility] [address] [place] [address], [address], 01/29/2025 20:50:02 01/30/20 25 01/29/2025 COMP. METAB OLIC PANEL calcium 9.4 mg/dL 8.6-10 .2 normal Not Available [facility] [address] [place] [address], [address], 01/29/2025 20:50:02 01/30/20 25 01/29/2025 COMP. METAB OLIC PANEL total protein 7.8 g/dL 6.4-8. 3 normal Not Available [facility] [address] [place] [address], [address], 01/29/2025 20:50:02 01/30/20 25 01/29/2025 COMP. METAB OLIC PANEL albumin 4.7 g/dL 3.5-5. 2 normal Not Available [facility] [address] [place] [address], [address], 01/29/2025 20:50:02 01/30/20 25 01/29/2025 COMP. METAB OLIC PANEL globulin 3.1 1.5-4. 5 normal Not Available [facility] [address] [place] [address], [address], 01/29/2025 20:50:02 01/30/20 25 01/29/2025 COMP. METAB OLIC PANEL albumin/glob ulin ratio 1.5 (calc ) 1.1-2. 5 normal Not Available [facility] [address] [place] [address], [address], 01/29/2025 20:50:02 01/30/20 25 01/29/2025 COMP. METAB OLIC PANEL bilirubin, total 2.1 mg/dL 0.1-1. 2 high Pleas e call the Lab withi n 24 hrs at 258-4 150 if fract ionat ed Bilir ubin is bernardo ed. Not Available [facility] [address] [place] [address], [phone], 01/29/2025 20:50:02 01/30/20 25 01/29/2025 COMP. METAB OLIC PANEL alkaline phosphatase 82 U/L 40-129 normal Not Available [facility] [address] [place] [address], [address], 01/29/2025 20:50:02 01/30/20 25 01/29/2025 COMP. METAB OLIC PANEL AST 16 U/L 0-40 normal Not Available [facility] [address] [place], [address], 01/29/2025 20:50:02 01/30/20 25 01/29/2025 COMP. METAB OLIC PANEL ALT 18 U/L 0-41 normal Not Available [facility] [address] [place], [address], 01/29/2025 20:50:02 01/30/20 25 01/29/2025 COMP. METAB OLIC PANEL eGFR 108 >= 60 normal NOT E New calcu latio n for GFR (CKD- EPI 2020) is formu lated witho ut race adjus tment facto rs at the recom menda tion of the [employer] ation and Ameri can Socie ty of Nephr ology . This calcu latio n has not been valid ated in pregn ant women . For pedia tric patie nts refer to https ://george w.drake quevedo.o rg/pr ofess ional s/KDO QI/gf r_cal culat orPed Not Available [facility] [address] [place], [address], 01/29/2025 20:50:02 10/02/19 25 09/18/2024 CT, abdom en + pelvi s, w/ contr ast No observ ation record ed. [email or web address] Not Available 14:14:01 10/02/19 25 09/18/2024 CT, abdom en + pelvi s, w/ contr ast No observ ation record ed. BARCODE Not Available 2024 18:35:32 10/02/19 25 09/18/2024 rhyth m strip , EKG* No observ ation record ed. BARCODE Not Available 2024 18:35:32 Result Notes None recorded. Problems Name Problem SNOMED Code Status Onset Date Resolution Date Notes Provider Name and Address Organization Details Recorded Time Acute stress disorder 07037546 Active 024 ARLIN DEAN MD [facility] [place], [address] , [facility] 11:48:08 Problem Notes None recorded. Procedures Surgical History Date Name Laterality Status Provider Name and Address Organization Details Recorded Time 10/11/2024 TCM completed Domenica Dixon [facility] Diane aguirre [facility] 10/10/2024 06:45:15 Imaging Results None recorded. Procedure Notes None recorded. Medical Equipment None Reported. Allergies No known drug allergies Medications Name Sig Start Date Stop Date Status Note LastModified by Organization Details LastModified Time buspirone 5 mg tablet TAKE 1 TABLET BY MOUTH TWICE A DAY 03/21 completed Not Available Not Available Not Available clonidine HCl 0.1 mg tablet TAKE 1 TABLET NEEDED WHEN SYSTOLIC BP IS ABOVE 160. DO NOT EXCEED 2 TABLETS IN 1 DAY 10/02 completed Not Available Not Available Not Available azithromyci n 250 mg tablet TAKE 2 TABLETS BY MOUTH TODAY, THEN TAKE 1 TABLET DAILY FOR 4 DAYS DIRECTED 09/13 completed Not Available Not Available Not Available hydrocodone 5 mg-acetamin ophen 325 mg tablet TAKE ONE TABLET BY MOUTH EVERY 6 HOURS NEEDED FOR POST OP PAIN MAY CAUSE DROWSINES S 10/11 completed Not Available Not Available Not Available hydroxyzine pamoate 50 mg capsule TAKE 1 CAPSULE BY MOUTH TWICE A DAY NEEDED FOR 30 DAYS 09/13 completed Not Available Not Available Not Available potassium chloride ER 10 mEq tablet,exte nded release TAKE 1 TABLET BY MOUTH EVERY DAY active Not Available Not Available No t Available amlodipine 5 mg tablet TAKE 1 TABLET BY MOUTH EVERY DAY active Not Available Not Available No t Available tramadol 50 mg tablet TAKE 1 TABLET BY MOUTH EVERY 6 HOURS 10/11 completed Not Available Not Available Not Available ketorolac 10 mg tablet 10/11 completed Not Available Not Available Not Available amoxicillin 875 mg tablet TAKE 1 TABLET BY MOUTH EVERY 12 HOURS 01/29 completed Not Available Not Available Not Available lorazepam 0.5 mg tablet TAKE 1 TABLET BY MOUTH TWICE A DAY NEEDED 09/13 completed Not Available Not Available Not Available oxycodone-a cetaminophe n 10 mg-325 mg tablet TAKE 1 TABLET BY MOUTH EVERY 6 HOURS active Not Available Not Available No t Available amlodipine 10 mg tablet TAKE 1 TABLET BY MOUTH EVERY DAY 01/29 completed Not Available Not Available Not Available pantoprazol e 40 mg tablet,cody yed release TAKE 1 TABLET BY MOUTH EVERY DAY FOR 60 DAYS 10/11 completed Not Available Not Available Not Available valsartan 320 mg tablet TAKE 1 TABLET BY MOUTH EVERY DAY 2024 active Not Available Not Available Not Avai lable hydrocodone -homatropin e 5 mg-1.5 mg/5 mL oral solution TAKE 5ML BY MOUTH EVERY 4 HOURS 01/29 completed Not Available Not Available Not Available sertraline 25 mg tablet TAKE 1 TABLET BY MOUTH EVERY DAY 03/21 completed Not Available Not Available Not Available hydroxyzine HCl 25 mg tablet TAKE 1 TABLET BY MOUTH THREE TIMES A DAY FOR 10 DAYS 10/02 completed Not Available Not Available Not Available methylpredn isolone 4 mg tablets in a dose pack TAKE 6 TABLETS ON DAY 1 DIRECTED ON PACKAGE AND DECREASE BY 1 TAB EACH DAY FOR A TOTAL OF 6 DAYS 01/29 completed Not Available Not Available Not Available buspirone 15 mg tablet TAKE 1 TABLET BY MOUTH TWICE A DAY DIRECTED 09/13 completed Not Available Not Available Not Available escitalopra m 10 mg tablet TAKE 1 TABLET BY MOUTH EVERY DAY FOR 30 DAYS 10/02 completed Not Available Not Available Not Available bupropion HCl XL 150 mg 24 hr tablet, extended release TAKE 1 TABLET BY MOUTH EVERY DAY IN THE MORNING 09/13 completed Not Available Not Available Not Available hydrochloro thiazide 12.5 mg tablet TAKE 1 TABLET BY MOUTH EVERY DAY active Not Available Not Available No t Available Vitals Date Recorded Body height Body mass index (BMI) Body weight Body temperature Heart rate Oxygen saturation Oxygen saturation in Arterial blood by Pulse oximetry Systolic And Diastolic Provider Name and Address Organization Details Last Updated DateTime 5 180.34 cm 34.3 kg/m2 847652. 44 g 97.6 [degF] 77 /min 99 % 99 % 142/88 mm[Hg] Jada Rosado [facility] 5 09:48:56 Date Recorded Body height Body mass index (BMI) Body weight Oxygen saturation Oxygen saturation in Arterial blood by Pulse oximetry Heart rate Systolic And Diastolic Provider Name and Address Organization Details Last Updated DateTime 5 180.34 cm 33.1 kg/m2 894370. 39 g 97 % 97 % 96 /min 130/92 mm[Hg] [facility] 5 13:56:04 Date Recorded Body height Body mass index (BMI) Body weight Heart rate Oxygen saturation Oxygen saturation in Arterial blood by Pulse oximetry Systolic And Diastolic Provider Name and Address Organization Details Last Updated DateTime 5 180.34 cm 33.3 kg/m2 670548. 58 g 72 /min 98 % 98 % 121/78 mm[Hg] [facility] 5 11:15:01 Date Recorded Body height Body mass index (BMI) Body weight Heart rate Oxygen saturation Oxygen saturation in Arterial blood by Pulse oximetry Systolic And Diastolic Provider Name and Address Organization Details Last Updated DateTime 5 180.34 cm 34.2 kg/m2 752605. 23 g 69 /min 100 % 100 % 132/82 mm[Hg] [facility] 5 10:38:09 Date Recorded Body weight Heart rate Oxygen saturation Oxygen saturation in Arterial blood by Pulse oximetry Systolic And Diastolic Provider Name and Address Organization Details Last Updated DateTime 4 402996. 75 g 76 /min 97 % 97 % 152/98 mm[Hg] Alexandra Neal [facility] 4 10:13:56 Social History None recorded. Functional Status Question Answer Note LastModified by Organizat ion Details LastModified Time What is your level of alcohol consumption? Occasional [email or web address] Information not available 03/21/2024 Mental Status None recorded. Family History Nothing Reported. Medical History No medical history recorded. Immunizations Vaccine Type Date Status Note Provider Nam e and Address Organization Details Recorded Time MMR 8 completed Edilia Marmolejo [facility] 11/28/2023 11:15:53 COVID-19, mRNA, LNP-S, PF, 100 mcg/0.5mL dose or 50 mcg/0.25mL dose 1 completed Edilia light [facility] 11/28/2023 11:15:53 COVID-19, mRNA, LNP-S, PF, 100 mcg/0.5mL dose or 50 mcg/0.25mL dose 1 completed Edilia Marmolejo [facility] 11/28/2023 11:15:53 Td (adult), 2 Lf tetanus toxoid, preservative free, adsorbed 8 completed Edilia Marmolejo [facility] 11/28/2023 11:15:53 Hep B, adolescent/high risk 9 completed Edilia Marmolejo [facility] 11/28/2023 11:15:53 Hep B, adolescent/high risk 8 completed Edilia Marmolejo [facility] 11/28/2023 11:15:53 Hep B, adolescent/high risk infant 8 completed Edilia Marmolejo [facility] 11/28/2023 11:15:53 Past Encounters Encounter ID Performer Location Encounter Start Date Encounter Closed Date Diagnosis/Indication Diagnosis SNOMED-CT Code Diagnosis ICD10 Code Diagnosis Note [id number] WIL GABRIEL LL, DO [facility] [address] [place] [address] 09/13/2023 10:36:35 09/13/2023 11:08:16 Acute frontal sinusitis 79383959 J01.10 Now with lower respirator y symptoms. Rapid flu test strep test negative. Amoxicilli n 875 twice daily x 10 days, Hycodan cough syrup, Medrol Dosepak [id number] ARLIN DEAN MD [facility] [address] [place] [address] 11/28/2023 11:14:59 11/28/2023 11:58:16 Acute stress disorder 65402100 F43.0 Patient identified triggers for anxiety and impact of anxiety and anxious thinking on functionin g. Discussed strategies to regulate symptoms and compliance with treatment. No previous history of anxiety, depression , or mental illness. Symptoms have been present for approximat joceline 6 months but have been all related to external events. I would still consider this an acute stress reaction even though it has been read at 6 months. We did discuss treatment options. He has started behavioral health therapy which will be weekly sessions. He would like to start medication management . He also has a history of hypertensi on. We discussed that with his combined sadness as well as anxiety that SSRIs/an SRI would probably be best to control all symptoms but this will take some time before does effective. We discussed bridging with BuSpar until Zoloft becomes more effective. He does have alternatin g shift hours at work and needs to remain nonsedated and fully functional at any time. He will follow-up in 2 weeks. Endocrine/ metabolic screening 965775894 Z13.228 Body mass index 30+ - obesity 570932832 Z68.39 [id number] DENICE DOLL PA-C [facility] [place] [address] [place] [address] 03/21/2024 09:50:51 03/21/2024 10:33:56 Generalized anxiety disorder 07944476 F41.1 Hypertensive disorder 38 436795 I10 BP is not well controlled .Encourage d routine bp checksHear t healthy diet and routine exercise encouraged .Return to clinic if symptoms do not improve.ER precaution s given Routine lab work at the time of apt. 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 Allow the medicine 3-4 weeks to see full effects. Will recheck at that time to assure appropriat e dosing. Call office with questions/ concerns or any adverse effects of med Hypertensive urgency [phone] I16.0 [id number] WIL GABRIEL LL, DO [facility] [place] [address] [place] [address] 10/02/2024 09:40:34 10/02/2024 10:38:13 Essential hypertension 03698902 I10 Blood pressure seemingly well-contr olled on medicine Epigastric pain 95298233 R10.13 was taking tums. now pepcid helps some. not much nsaids. er eval ok. CT ok.-Could be ulcer, could be gallbladde r. We will send for right upper quadrant ultrasound , HIDA scan, go ahead and start twice daily PPI, gallbladde r is negative we will refer to GI for endoscopy. Will give him some tramadol for pain [id number] WIL DILLARD, DO [facility] [place] [address] [facility] [place] [address] 10/11/2024 13:47:56 10/11/2024 14:33:37 Cholelithiasis with obstruction 35208123 K80.81 obsttructi on. ercp. stone removal. sp donovan now.lose stoolmotri n- tylenol- tramadol not much pain- hydrocodon e no benifit.sa w surgeon okoff for a whiletakin g ppi.-Okay to take Percocet as needed over the weekend [id number] WIL DILLARD, DO [facility] [address] [place] [address] 12/02/2024 11:00:57 12/02/2024 11:35:25 Essential hypertension 63132551 I10 Blood pressure seemingly well-contr olled on medicine Acute fron michael sinusitis 35474508 J01.10 Acute frontal sinusitis: Amoxicilli n 875 twice daily x 10 days, Hycodan cough syrup, Medrol Dosepak [id number] WIL DILLARD, DO [facility] [address] [place] [address] 01/29/2025 10:22:15 01/29/2025 11:05:44 Essential hypertension 23210957 I10 Blood pressure seemingly well-contr olled on medicine-suspect edema is from high-dose Norvasc. Decreased amlodipine to 5 mg add HCTZ 12.5 with potassium Generalized edema 400917 008 R60.1 02/05-think patient symptoms are likely side effect of medication , however does require further evaluation , we will check routine labs, BNP, chest x-ray urinalysis , sent for echocardio gram Family his tory of cardiac disorder 963211562 Z82.49 Father with [place] in 40s.new on set edema- Reasonable sent for stress testing to make sure symptoms are not cardiogeni c Health Concerns Section Related Observation LastModified by Organization Detai ls LastModified Time None Recorded Concern Status LastModified by Organization Details LastModified Time None Recorded Advance Directives Directive None Recorded Payers Insurance Date Sequence Insurance Name Policy Number Policy [place] Covered Member ID [place] Member ID Guarantor Name 03/21/2024 1 [facility] Jose Francisco Johnson [id number] Jose Francisco Johnson 01/28/2025 1 [employer] [id number] Jose Francisco Johnson [id number] Jose Francisco Johnson Notes Date Note Type Note Provider Name and Address Organization Details Recorded Time 4 text/html 38 year old male patient presents to the office with multiple complaints: Anxiety/Depression: Going through a divorce.Symptoms began 2 monthsPatient denies SI/HI, thoughts of hurting self/others.Has tried and failed Buspar and ZoloftNot sleeping well- worsening anxiety symptoms Elevated bp: has been taking Valsartan and Amlodipine.Headache, flushing.Did an EKG yesterday at the office- normal.BP has been elevated-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 DENICE DOLL PA-C [address] [place], [address], [facility] 03/27/2024 13:33:52 5 text/html Patient is 39-year-old male with hypertension and history of weight loss surgery here for acute visit, he has been having epigastric pain, off and on for the last several months, has been getting progressively worse however, mostly in the middle of his stomach, radiating around the sides to the back, over the weekend. Got so bad it woke him up in the middle of the night, he went to the emergency department for evaluation, laboratory test was unremarkable, CT was unremarkable. He does states been having more heartburn and reflux lately, has been taking [id number]-kwp-[id number] medications, but does not think they are working as well as they used to. His weights been relatively stable WIL MOSS DO [facility] [place], [address], [facility] 10/02/2024 11:19:37 5 text/html TCMReported bypatient.Details:admission date: (10/02/24); date of discharge: (10/05/24); discharge provider: (Tony Mina MD); Facility OTHER; diagnosis (-Cholelithiasis -rt upper quadrant abdominal pain, acute -Elevated bilirubin, Acute -Acute epigastric pain) [facility] Performed:unable to contact patient, please refer to patient case of date:(10/08/24) Reported Medicationsmedications reconciled: taking medications as prescribed; no recent change in medication: new medication Procedure(s) / Surgeries while admittedProcedure(s) / Surgeries while admitted (-bedside ultrasound 10/02/24 confirming cholelithiasis -bedside point of care ultrasound Thickened gallbladder wall measuring approximately 3.6mm gallstones, and a positive Reed sign consisstent with acute cholecystitis. -ERCP-Cholecystectomy) Discharge/Functional statusdischarge instructions (-f/u with PCP-DI for surgical site infection-DI for Cholecystitis-DI for Laparoscopic cholecystectomy); no difficulty following discharge instructions (-Advance to usual diet -remove dressing and shower after 24 hrs); following recommended activity level (-Ambulate as tolerated and no heavy lifting.) Patient is 39-year-old male here for acute visit, he was seen last week for epigastric pain, thought he could have had gallstones, evidently later on that day he had excruciating abdominal pain that required emergency room evaluation again was found to have a common bile duct stone, required ERCP for stone removal with subsequent cholecystectomy. He was discharged, and no complications, everything went okay, he is still having some normal postoperative pain, he has been taking some Motrin Tylenol, hydrocodone has not helped very much. He took Percocet in the hospital and felt like he did better with that. His bowels are loose, he has no fever, no dyspnea WIL MOSS , DO [address] [place], [address], [place] [facility] 10/11/2024 17:07:16 5 text/html Patient is 39-year-old male here for acute visit, he has been sick about a week, has had sinus congestion, sore throat, pressure in his head, drainage, Think he will get better if it is not, he has no fever, no chest congestion no sputum production. Mostly in his head he is coughing a lot at night WIL MOSS , DO [address] [place], [address], [facility] 12/02/2024 13:09:13 5 text/html Patient is 39-year-old male here for acute visit, he has longstanding hypertension, obesity, although he has lost weight over the last few years. He comes in today with main complaint of lower extremity edema, he has had several times over the last several months. He cannot correlated to anything that he ate or how much he drank. He has not painful but it is pretty odd, he went to the fire station had his blood sugar checked but a twelve-lead EKG that was read as okay.He is not have any significant chest pain pressure tightness. He has been on Norvasc 10 for a year or 2 now. Typically has worked pretty well for his blood pressure Patient's father does have history of premature heart disease with multiple MIs in his 40s WIL MOSS , DO [address] [place], [address], [facility] 01/29/2025 14:38:58
--- OUTSIDE RECORDS SUMMARY | 2025-02-25 07:35 | XMS_ITS | Continuity of Care Document ---
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 Plan of Treatment Reminders Order Date Submit Date Provider Last Modified By Organization Details Last Modified Time Details Appointments RECHE CK 2024 09:15A M DR MOSS Not available Not available Not available Lab CBC w/ auto diff 2024 025 [facility], [address] [place] [address], [id number], 01/29/2025 19:37:09 CMP, serum or plasm a 2024 025 [facility], [address] [place] [address], [id number], 01/29/2025 20:50:02 BNP (B-ty pe natri ureti c pepti de), serum or plasm a 2024 025 [facility], [address] [place] [address], [id number], 01/29/2025 20:39:08 urina lysis , compl ete 2024 025 [facility], [address] [place] [address], [id number], 01/29/2025 20:30:52 Referral None recor ded. Procedures None recor ded. Surgeries None recor ded. Imaging US, doppl er echoc ardio gram, w/ color flow [address] (Scheduling), [address], [place], [address], 02/20/2025 15:41:23 XR, chest , 2 view [address] (Scheduling), [address], [place], [address], 02/24/2025 14:25:20 cardi ac stres s test - MYOVI EW JAVI CAN NUCLE AR STRES S [address] (Scheduling), [address], [place], [address], 02/20/2025 15:41:23 NM, myoca rdial perfu russ scan [address] (Sched[address]), [address], [place], [address], 02/06/2025 14:04:26 Medication Orders valsa rtan 320 mg table t 2024 025 [id number], [address] [place], [address], 01/29/2025 10:58:45 amlod ipine 5 mg table t 2024 025 [id number], [address] [place], [address], 01/29/2025 10:58:45 hydro chlor othia zide 12.5 mg table t 2024 025 [facility], [address] [place], [address], 01/29/2025 10:58:49 potas sium chlor jalen ER 10 mEq table t,ext ended relea se 2024 025 [facility][id number], [address] [place], [address], 01/29/2025 10:58:48 Patient TargetsNo targets recorded. Patient Instructions Encounter Date Encounter Id Patient Instructions Last Modified By Organization Details Last Modified Time 01/29/2025 [id number] Heart Station Patient Instructions [email or web address] Not available 01/29/2025 11:01:50 Reason for Referral None Reported. Problems Name Problem SNOMED Code Status Onset Date Resolution Date Notes Provider Name and Address Organization Details Recorded Time Acute stress disorder 13749436 Active 024 ARLIN DEAN MD [address] [place] [address], [phone] , [facility] 11:48:08 Problem Notes None recorded. Procedures Surgical History Date Name Laterality Status Provider Name and Address Organization Details Recorded Time 10/11/2024 TCM completed [facility] 10/10/2024 06:45:15 Imaging Results None recorded. [...] Updated DateTime 5 180.34 cm 34.2 kg/m2 485151. 23 g 69 /min 100 % 100 % 132/82 mm[Hg] Edilia Chan [facility] 5 10:38:09 Social History None recorded. Functional Status Question Answer Note LastModified by Organizat ion Details LastModified Time What is your level of alcohol consumption? Occasional [email or web address] Information not available 03/21/2024 Mental Status None recorded. Family History Nothing Reported. Medical History No medical history recorded. Immunizations Vaccine Type Date Status Note Provider Nam e and Address Organization Details Recorded Time [facility] 11:15:53 COVID-19, mRNA, LNP-S, PF, 100 mcg/0.5mL dose or 50 mcg/0.25mL dose 1 [facility] 11:15:53 COVID-19, mRNA, LNP-S, PF, 100 mcg/0.5mL dose or 50 mcg/0.25mL dose 1 completed Edilia Marmolejo [facility] 11/28/2023 11:15:53 Td (adult), 2 Lf tetanus toxoid, preservative free, adsorbed 8 [facility] 11:15:53 Hep B, adolescent/high risk infant 9 completed Edilia Marmolejo [facility] 11/28/2023 11:15:53 Hep B, adolescent/high risk infant [facility] 11:15:53 Hep B, adolescent/high risk infant [facility] 11:15:53 Past Encounters Encounter ID Performer Location Encounter Start Date Encounter Closed Date Diagnosis/Indication Diagnosis SNOMED-CT Code Diagnosis ICD10 Code Diagnosis Note [id number] WIL HARVEY LL, DO [facility] [address] [place] [address] 01/29/2025 10:22:15 01/29/2025 11:05:44 Essential hypertension 00291426 I10 Blood pressure seemingly well-contr olled on medicine-suspect edema is from high-dose Norvasc. Decreased amlodipine to 5 mg add HCTZ 12.5 with potassium Generalized edema 371986 008 R60.1 02/05-think patient symptoms are likely side effect of medication , however does require further evaluation , we will check routine labs, BNP, chest x-ray urinalysis , sent for echocardio gram Family his tory of cardiac disorder 172546291 Z82.49 Father with MT in 40s.new on set edema- Reasonable sent for stress testing to make sure symptoms are not cardiogeni c Health Concerns Section Related Observation LastModified by Organization Detai ls LastModified Time None Recorded Concern Status LastModified by Organization Details LastModified Time None Recorded Payers Encounter Date Sequence Insurance Name Policy Number Policy Woodward Covered Member ID Woodward Member ID Guarantor Name 01/29/2025 1 [employer] [id number] 1 Jose Francisco Johnson [id number] Jose Francisco Johnson Notes Date Note Type Note Provider Name and Address Organization Details Recorded Time 01/29/2025 text/html Patient is 39-year-old male here for [...] with multiple MIs in his 40s WIL MOSS, DO [address] [place], [address], [facility] 01/29/2025 14:38:58
--- NOTE | 2025-02-25 07:36 | NM_ITS ---
APPROVED REPORT Exam: Nuclear Stress Test Indication: Edema, HTN, Family history Patient Location: Outpatient Stress Tech: Liliane Gonzalez [place] Tech:Alicia Gilmore, ARRT, RT (R)(N) Ht: 5 ft 11 in Wt: 243 lbs HR: 58 bpm BP: 138/84 mmHg BSA: 2.29 m2 TID: 1.12 BMI: 33.8 History: Edema, HTN, Family history Procedure: Patient received 0.4 mg of intravenous Lexiscan, resting heart rate 58 bpm, resting blood pressure 138/84 mmHg, with Lexiscan maximum heart rate achieved was 97 bpm which is % of the maximum predicted heart rate and blood pressure was 155/82 mmHg. With Lexiscan, patient denied any complaint of chest pain. Cardiac Stress and Resting SPECT Images: Cardiac Stress and Resting SPECT images were obtained using technetium 99m Myoview 32.1 mCi stress and 10.18 mCi at rest. Technically difficult study due to significant soft tissue overlap with the cardiac borders. This may affect the diagnostic interpretation of the study findings. Resting and stress imaging in supine and prone positions demonstrate a medium sized, moderate, partially reversible perfusion defect in the basal to mid inferior and lateral LV mcnamara. Gated imaging demonstrates low-normal global LV systolic function. LVEF is calculated at 51%. Conclusion: Technically difficult study due to significant soft tissue overlap with the cardiac borders. This may affect the diagnostic interpretation of the study findings. Medium sized, moderate, partially reversible perfusion defect in the basal to mid inferior and lateral LV mcnamara. Findings are suggestive of partial reversible ischemia. Gated imaging demonstrates low-normal global LV systolic function. LVEF is calculated at 51%. Electronically signed by : Ameile Mittal MD 02/25/2025 12:59:39
[2025-02-25] MEDS: ISOTOPE MYOVIEW (PER STUDY) 1 DOSE IV (08:46)
[2025-02-25] MEDS: SODIUM CHLORIDE 0.9% 10ML SYR (RAD ONLY) 10 ML IV ×2 (08:46)
== END 2025-02-25 23:59 | disposition home or self-care (01) ==
LOC: RAD 07:33
PROVIDERS: PCP Internal Medicine; Visit Provider Internal Medicine
DX: I07.1 Rheumatic tricuspid insufficiency (principal); R94.39 Abnormal result of other cardiovascular function study; R00.1 Bradycardia, unspecified; I10 Essential (primary) hypertension; R60.1 Generalized edema; Z82.49 Family history of ischemic heart disease and other diseases of the circulatory system
CPT/HCPCS: 71046; 78452; 93016; 93017; 93018; 93306; A9502; J2785